=== PATIENT | female | born 1955 | race Caucasian/White ===

== ENCOUNTER 2018-06-29 00:31 | Emergency (ER) | payer BC, MEDICARE, OTHER ==
[2018-06-29] MEDS ORDERED: IPRATROPIUM/ALBUTEROL 3 ML NEB INH STA (01:45)
[2018-06-29] MEDS ORDERED: LIDOCAINE VISCOUS 2% 15 ML UDC MM STA (01:45)
[2018-06-29] MEDS ORDERED: IOVERSOL 320 100 ML VIAL IVP ONE ×2 (01:57→03:10)
[2018-06-29 02:29] LABS: BASOPHILS # (AUTO) 0.1 10^3/uL (0.0-0.1); BASOPHILS % (AUTO) 1.1 %; EOSINOPHILS % (AUTO) 0.7 %; HGB - HEMOGLOBIN 13.2 g/dL (12.0-16.0); LYMPHOCYTES # (AUTO) 1.9 10^3/uL (1.5-3.5); LYMPHOCYTES % (AUTO) 28.4 %; MEAN CORPUSCULAR HEMOGLOBIN 32.6 pg (27.0-31.0); MEAN CORPUSCULAR HGB CONC 34.6 g/dL (32.0-36.0); MEAN CORPUSCULAR VOLUME 94.1 fL (81.0-99.0); MONOCYTES # (AUTO) 0.5 10^3/uL (0.0-1.0); MONOCYTES % (AUTO) 7.1 %; NEUTROPHILS # (AUTO) 4.1 10^3/uL (1.5-6.6); NEUTROPHILS % (AUTO) 62.7 %; PLT - PLATELET COUNT 451 10^3/uL (130-450); RED BLOOD COUNT 4.04 10^6/uL (4.20-5.40); RED CELL DISTRIBUTION WIDTH 22.5 % (12.0-15.0); WHITE BLOOD COUNT 6.6 x10^3/uL (4.8-10.8)
[2018-06-29 02:33] LABS: ALBUMIN 3.9 g/dL (3.2-5.5); ALKALINE PHOSPHATASE 129 IU/L (42-121); ALT ALANINE AMINOTRANSFERASE 24 IU/L (10-60); AST ASPARTATE AMINOTRANSFERASE 44 IU/L (10-42); BILIRUBIN,TOTAL 0.8 mg/dL (0.2-1.0); BUN - BLOOD UREA NITROGEN < 5 mg/dL (6-20); CALCIUM 8.3 mg/dL (8.5-10.3); CARBON DIOXIDE - CO2 21 mmol/L (21-32); CHLORIDE 101 mmol/L (101-111); CREATININE 0.5 mg/dL (0.4-1.0); GFR - MDRD 125 (>89); GLUCOSE 86 mg/dL (70-100); LIPASE 23 U/L (22-51); SODIUM 140 mmol/L (135-145); TOTAL PROTEIN 7.9 g/dL (6.7-8.2)
[2018-06-29] MEDS ORDERED: SODIUM CHLORIDE 0.9% 3,000 ML IV ONE (02:36)
--- NOTE | 2018-06-29 03:20 | XRAY Report ---
Reason: Cough Procedure Date: 06/29/2018 Accession Number: [id number] / [id number] Procedure: XR - Chest 2 View X-Ray CPT Code: 66779 FULL RESULT: EXAM: CHEST RADIOGRAPHY EXAM DATE: 06/29/2018 03:12 AM. CLINICAL HISTORY: Cough. COMPARISON: MRCP W/O 11/23/2014 2:55 PM. TECHNIQUE: 2 views. FINDINGS: Lungs/Pleura: No focal opacities evident. No pleural effusion. No pneumothorax. Normal volumes. Mediastinum: Heart and mediastinal contours are unremarkable. Other: None. IMPRESSION: Negative 2-view chest radiography. RADIA
--- NOTE | 2018-06-29 03:44 | CT Report ---
Reason: Sore throat w voice change Procedure Date: 06/29/2018 Accession Number: [id number] / [id number] Procedure: CT - SOFT TISSUE NECK W CPT Code: FULL RESULT: EXAM: CT SOFT TISSUE NECK WITH CONTRAST. EXAM DATE: 06/29/2018 03:14 AM. HISTORY: COMPARISONS: None. TECHNIQUE: Routine soft tissue neck CT protocol. Reconstructions: Coronal and sagittal. IV contrast: 80ML OPTIRAY 320. In accordance with CT protocol optimization, one or more of the following dose reduction techniques were utilized for this exam: automated exposure control, adjustment of mA and/or KV based on patient size, or use of iterative reconstructive technique. FINDINGS: Visualized Intracranial Contents: Unremarkable. Orbits: Symmetric and unremarkable. Sinuses: There is a left maxillary sinus fluid level. Oral cavity: The visualized oral cavity is unremarkable. The floor of the mouth is symmetric. Pharynx : Pharyngeal mucosa is unremarkable. Larynx: Larynx and supraglottic airway are patent without mass lesion. Vocal cords are symmetric. The visualized trachea is unremarkable. Parotid and Submandibular Glands: Heterogeneous appearance of submandibular gland. Submandibular and parotid glands are enlarged. No adjacent edema.. Lacrimal gland somewhat prominent as well. Lymph Nodes: No enlarged lymph nodes are identified in the cervical, supraclavicular, and visualized superior mediastinal regions. Soft tissues: Soft tissues are unremarkable. No mass lesion or abnormal enhancement. Vascular Structures: Unremarkable. Thyroid Gland: Normal. Lung: No opacities posteriorly in bilateral lung apices, right greater than left. Bones: No evidence of acute fracture or malalignment. There are mild degenerative changes. Other: None. IMPRESSION: 1. Acute appearing left maxillary sinus disease. 2. Nonspecific enlargement of salivary glands may represent autoimmune or infectious process. 3. Opacities in bilateral lung apices may represent atypical pneumonia. RADIA
--- NOTE | 2018-06-29 04:31 | ED Physician Documentation ---
PD HPI URI - Stated complaint Stated Complaint: SOA/COUGH - Chief complaint Chief Complaint: Resp - History obtained from History obtained from: Patient - History of Present Illness Timing - onset: How many months ago (2) Timing duration: Months (2) Timing details: Gradual onset Pain level max: 3 Pain level now: 3 Associated symptoms: Fever, Nasal congestion, Productive cough Contributing factors: No: Sick contact, Travel Improves by: No: Rest, Medication Worsened by: Activity Review of Systems Constitutional: reports: Reviewed and negative Eyes: reports: Reviewed and negative Ears: reports: Reviewed and negative Nose: reports: Reviewed and negative Throat: reports: Sore throat, Other (Voice change) Cardiac: reports: Reviewed and negative Respiratory: reports: Cough GI: reports: Reviewed and negative : reports: Reviewed and negative Skin: reports: Reviewed and negative Musculoskeletal: reports: Reviewed and negative Neurologic: reports: Reviewed and negative Psychiatric: reports: Reviewed and negative Endocrine: reports: Reviewed and negative Immunocompromised: reports: Reviewed and negative PD PAST MEDICAL HISTORY - Past Medical History Past Medical History: Yes Cardiovascular: None Respiratory: None Endocrine/Autoimmune: None GI: None 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 : None HEENT: None Psych: Anxiety Musculoskeletal: None Derm: None - Past Surgical History Past Surgical History: Yes General: Cholecystectomy, Appendectomy /DESIGN TRANSFERRER: Hysterectomy - Present Medications Home Medications: Ambulatory Orders Medication Instructions Recorded Confirmed Gabapentin 300 mg PO QPM 11/07/14 11/07/14 HYDROcod/ACETAM 5/325 [Vicodin 1 - 2 tab PO Q4HR PRN 11/07/14 11/07/14 5/325] Hydrocodone/Acetaminophen [[place] 1 each PO Q6H PRN #12 tablet 11/07/14 5-325 Tablet] Ondansetron Odt [Zofran Odt] 4 mg PO Q4HR PRN 11/07/14 11/07/14 Promethazine Supp [Phenergan Supp] 25 mg [place] Q6H PRN #10 supp 11/07/14 oxyCODONE [Roxicodone] 5 mg PO Q4-6H PRN #14 tablet 11/22/14 Amox/Clav 875/125 [Augmentin] 1 each PO Q12H #20 tablet 06/29/18 Azithromycin [Zithromax] 0 mg PO DAILY #6 tablet 06/29/18 - Allergies Allergies/Adverse Reactions: Allergies Allergy/AdvReac Type Severity Reaction Status Date / Time No Known Drug Allergies Allergy Verified 09/08/14 11:59 - Living Situation Living Situation: reports: With spouse/s.o. Living Arrangement: reports: At home - Social History Does the pt smoke?: No Smoking Status: Never smoker Does the pt drink ETOH?: Yes Does the pt have substance abuse?: No - Family History Family history: reports: Other (Reviewed and not pertinent) - Immunizations Immunizations are current?: Yes - POLST Patient has POLST: No PD ED PE NORMAL - Vitals Vital signs reviewed: Yes - General General: Alert and oriented X 3, No acute distress - HEENT HEENT: PERRL - Neck Neck: Supple, no meningeal sign - Cardiac Cardiac: RRR, No murmur - Respiratory Respiratory: Clear bilaterally - Abdomen Abdomen: Normal bowel sounds, Soft, Non tender, Non distended - Derm Derm: Warm and dry - Extremities Extremities: No deformity - Neuro Neuro: Alert and oriented X 3 - Psych Psych: Normal mood, Normal affect Results - Vitals Vitals: Vital Signs - 24 hr 06/29/18 06/29/18 02:21 04:49 Temperature 36.9 C Heart Rate 92 103 H Respiratory 18 20 Rate Blood Pressure 135/84 H O2 Saturation 96 Oxygen O2 Source Room air - Labs Labs: Laboratory Tests 06/29/18 06/29/18 06/29/18 01:55 02:10 02:10 WBC 6.6 RBC 4.04 L Hgb 13.2 Hct 38.0 MCV 94.1 MCH 32.6 H MCHC 34.6 RDW 22.5 H Plt Count 451 H MPV 6.0 L Neut # (Auto) 4.1 Lymph # (Auto) 1.9 Esmeralda # (Auto) 0.5 Eos # (Auto) 0.0 Baso # (Auto) 0.1 Absolute Nucleated RBC 0.00 Nucleated RBC % 0.0 Manual Slide Review Indicated Platelet Estimate NORMAL (130-450,000) RBC Morph Micro Appear 2+ ANISOCYTOSIS Sodium 140 Potassium 3.4 L Chloride 101 Carbon Dioxide 21 Anion Gap 18.0 H BUN < 5 L Creatinine 0.5 Estimated GFR (MDRD) 125 Glucose 86 Lactic Acid Calcium 8.3 L Total Bilirubin 0.8 AST 44 H ALT 24 Alkaline Phosphatase 129 H Total Protein 7.9 Albumin 3.9 Globulin 4.0 Albumin/Globulin Ratio 1.0 Lipase 23 Group A Strep Rapid Negative 06/29/18 02:10 WBC RBC Hgb Hct MCV MCH MCHC RDW Plt Count MPV Neut # (Auto) Lymph # (Auto) Esmeralda # (Auto) Eos # (Auto) Baso # (Auto) Absolute Nucleated RBC Nucleated RBC % Manual Slide Review Platelet Estimate RBC Morph Micro Appear Sodium Potassium Chloride Carbon Dioxide Anion Gap BUN Creatinine Estimated GFR (MDRD) Glucose Lactic Acid 3.2 H* Calcium Total Bilirubin AST ALT Alkaline Phosphatase Total Protein Albumin Globulin Albumin/Globulin Ratio Lipase Group A Strep Rapid - Rads (name of study) Chest xray Radiology: Final report received (Bilateral lower lobe atypical PNA) CT Soft Tissue Neck Radiology: Final report received (Maxillary sinusitis) PD MEDICAL DECISION MAKING - ED course Complexity details: reviewed results, re-evaluated patient, considered differential, d/w patient, d/w family ED course: 62-year-old female with difficulty swallowing and voice change.CT soft tissue neck showed sinusitis and chest x-ray showed possible bilateral lower lobe pneumonia. Given long time course of symptoms patient is treated for bacterial sinusitis with Augmentin and atypical pneumonia with azithromycin. Discharged with primary care follow-up. Departure - Departure Disposition: 01 Home, Self Care Clinical Impression: Acute bacterial sinusitis Pneumonia Qualifiers: Pneumonia type: due to unspecified organism Laterality: bilateral Instructions: Pneumonia Dc, Rhinosinusitis Acute Bacterial Follow-Up: Your, PCP [Other] Prescriptions: Amox/Clav 875/125 [Augmentin] 1 each PO Q12H #20 tablet Azithromycin [Zithromax] 0 mg PO DAILY #6 tablet
[2018-06-29 04:50] VITALS: BP 135/84
[2018-06-29 05:24] LABS: PLATELET ESTIMATE, MANUAL NORMAL (130-450,000) (NORMAL)
[2018-06-29 05:25] LABS: RBC MORPHOLOGY (MULTIPLE) 2+ ANISOCYTOSIS (NORMAL)
== END 2018-06-29 04:51 | disposition home or self-care (01) ==
LOC: ED 00:31
DX: J01.00 Acute maxillary sinusitis, unspecified (principal); B96.89 Other specified bacterial agents as the cause of diseases classified elsewhere; J18.9 Pneumonia, unspecified organism; R13.10 Dysphagia, unspecified; R49.9 Unspecified voice and resonance disorder
CPT/HCPCS: 36415; 70491; 71046; 80053; 83605; 83690; 85025; 87040; 87070; 87430; 94640; 99283; Q9967

== ENCOUNTER 2018-07-29 12:47 | Emergency (ER) | payer MEDICARE ==
--- NOTE | 2018-07-29 14:02 | ED Physician Documentation ---
PD HPI LOWER EXT INJURY - Stated complaint Stated Complaint: LEFT FOOT PAIN - Chief complaint Chief Complaint: Trauma Ext - History obtained from History obtained from: Patient - History of Present Illness PD HPI LOW EXT INJURY LOCATION: Left, Ankle, Foot Type of injury: Twist Where injury occurred: Home Timing - onset: Last night (She states she got up during the night and had a twisting mechanism of her left ankle and foot with pain on it subsequently. There is some swelling this morning. It hurts for her to walk. She thought she may have been a little off balance from taking Cymbalta at night that led to the fall. She denies any fainting.) Timing - details: Abrupt onset, Still present Worsened by: Moving, Palpating, Other (walking) Associated symptoms: Swelling. 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 : None HEENT: None Psych: Anxiety Musculoskeletal: None Derm: None - Past Surgical History Past Surgical History: Yes General: Cholecystectomy, Appendectomy /NAVAL ENGINEER: Hysterectomy - Present Medications Home Medications: Ambulatory Orders Medication Instructions Recorded Confirmed Gabapentin 300 mg PO QPM 11/07/14 11/07/14 HYDROcod/ACETAM 5/325 [Vicodin 1 - 2 tab PO Q4HR PRN 11/07/14 11/07/14 5/325] Hydrocodone/Acetaminophen [[place] 1 each PO Q6H PRN #12 tablet 11/07/14 5-325 Tablet] Ondansetron Odt [Zofran Odt] 4 mg PO Q4HR PRN 11/07/14 11/07/14 Promethazine Supp [Phenergan Supp] 25 mg [place] Q6H PRN #10 supp 11/07/14 oxyCODONE [Roxicodone] 5 mg PO Q4-6H PRN #14 tablet 11/22/14 Amox/Clav 875/125 [Augmentin] 1 each PO Q12H #20 tablet 06/29/18 Azithromycin [Zithromax] 0 mg PO DAILY #6 tablet 06/29/18 Hydrocodone/Acetaminophen [[place] 1 each PO Q6H PRN #15 tablet 07/29/18 5-325 Tablet] - Allergies Allergies/Adverse Reactions: Allergies Allergy/AdvReac Type Severity Reaction Status Date / Time No Known Drug Allergies Allergy Verified 07/29/18 12:56 - Social History Does the pt smoke?: No Smoking Status: Never smoker Does the pt drink ETOH?: Yes Does the pt have substance abuse?: No - Immunizations Immunizations are current?: Yes - POLST Patient has POLST: No PD ED PE NORMAL - Vitals Vital signs reviewed: Yes - General General: Alert and oriented X 3, No acute distress, Well developed/nourished - Derm Derm: Normal color, Warm and dry - Extremities Extremities: Other (Left lateral ankle and dorsal lateral aspect of the foot with localized tenderness and swelling. There is no gross deformity. There is no warmth of the area but some slight redness. There is good color and capillary refill in the toes and movement of the toes. There is no gross laxity with limited inversion stress. Medially is not tender.) - Neuro Neuro: No motor deficit, No sensory deficit Results - Vitals Vitals: Vital Signs - 24 hr 07/29/18 07/29/18 12:53 14:48 Temperature 35.7 C L 36.6 C Heart Rate 92 88 Respiratory 14 14 Rate Blood Pressure 111/74 112/72 O2 Saturation 99 100 Oxygen O2 Source Room air - Rads (name of study) left foot and ankle Radiology: Prelim report reviewed, EMP read contemporaneously (no fractures. ), See rad report Departure - Departure Disposition: 01 Home, Self Care Clinical Impression: Ankle sprain Qualifiers: Encounter type: initial encounter Involved ligament of ankle: anterior talofibular ligament Laterality: left Qualified Code(s): S93.492A - Sprain of other ligament of left ankle, initial encounter Condition: Stable Record reviewed to determine appropriate education?: Yes Instructions: ED Sprain Ankle Prescriptions: Hydrocodone/Acetaminophen [[place] 5-325 Tablet] 1 each PO Q6H PRN #15 tablet PRN Reason: Pain Comments: Use ankle brace when up and around for the next week or 2 until improved on the ankle sprain. There are no signs of fractures on your x-rays. Elevate and rest the ankle often to reduce swelling. You can use some ice periodically. Tylenol or ibuprofen if needed for pains. Add hydrocodone if needed. Recheck if not better over the next week or so. Discharge Date/Time: 07/29/18 14:48
[2018-07-29] MEDS ORDERED: NAPROXEN 250 MG TABLET PO STA (14:31)
[2018-07-29] MEDS ORDERED: HYDROcod/ACETAM 5/325 MG TABLET PO STA (14:31)
--- NOTE | 2018-07-29 14:45 | XRAY Report ---
Reason: fall. Pain/swelling Procedure Date: 07/29/2018 Accession Number: [id number] / [id number] Procedure: XR - Ankle 3 View LT CPT Code: FULL RESULT: EXAM: LEFT ANKLE RADIOGRAPHY EXAM DATE: 07/29/2018 01:05 PM. CLINICAL HISTORY: Fall. Pain/swelling. COMPARISON: FOOT 3 VIEW LT 07/29/2018 1:05 PM. TECHNIQUE: 3 views. FINDINGS: Bones: Nondisplaced fracture of the lateral malleolus. Joints: Small joint effusion at the ankle. Soft Tissues: Soft tissue swelling along the lateral aspect of the ankle. IMPRESSION: 1. Nondisplaced fracture of the lateral malleolus. 2. Soft tissue swelling along the lateral aspect of the ankle. [facility]
[2018-07-29 14:49] VITALS: BP 112/72
--- NOTE | 2018-07-29 14:53 | XRAY Report ---
Reason: fall/ pain/swelling Procedure Date: 07/29/2018 Accession Number: [id number] / [id number] Procedure: XR - Foot 3 View LT CPT Code: FULL RESULT: EXAM: LEFT FOOT RADIOGRAPHY EXAM DATE: 07/29/2018 01:05 PM. CLINICAL HISTORY: Fall/ pain/swelling. COMPARISON: ANKLE 3 VIEW LT 07/29/2018 1:05 PM. TECHNIQUE: 3 views. FINDINGS: Bones: Nondisplaced fracture of the lateral malleolus. Joints: Normal. No subluxations. Soft Tissues: Normal. No soft tissue swelling. IMPRESSION: Nondisplaced fracture of the lateral malleolus. RADIA
== END 2018-07-29 14:48 | disposition home or self-care (01) ==
LOC: ED 12:47
DX: S93.492A Sprain of other ligament of left ankle, initial encounter (principal); X50.1XXA Overexertion from prolonged static or awkward postures, initial encounter
CPT/HCPCS: 73610; 73630; 99283; A9270

== ENCOUNTER 2018-10-06 17:42 | Outpatient (CLI) | payer MEDICARE | END 2018-10-06 17:43 | disposition critical access hospital (66) | LOC: EMS 17:42 | PROVIDERS: ATTEND Surgery | DX: R40.20 Unspecified coma (principal) | CPT/HCPCS: A0425; A0427 ==

== ENCOUNTER 2018-10-06 17:54 | Emergency (ER) | payer MEDICARE ==
[2018-10-06] MEDS ORDERED: ROCURONIUM 50 MG/5 ML VIAL IVP ONE (18:06)
[2018-10-06] MEDS ORDERED: LIDOCAINE 2% ABBOJECT 100 MG/5 ML SYRINGE IVP STA (18:07)
[2018-10-06] MEDS ORDERED: fentaNYL 100 MCG/2 ML VIAL IVP STA (18:07)
[2018-10-06] MEDS ORDERED: ETOMIDATE 40 MG/20 ML VIAL IVP STA (18:07)
[2018-10-06] MEDS ORDERED: LORazepam 2 MG/ML VIAL IVP STA (18:07)
[2018-10-06] MEDS ORDERED: VECURONIUM 10 MG VIAL IVP STA (18:09)
[2018-10-06] MEDS ORDERED: levETIRAcetam INJ 1,000 MG in SODIUM CHLORIDE 0.9% 100ML 100 ML IV STA (18:09)
[2018-10-06] MEDS ORDERED: SODIUM CHLORIDE 0.9% 1,000 ML IV ONE ×2 (18:09→19:17)
[2018-10-06] MEDS ORDERED: PROPOFOL 1000 MG/100 ML 100 ML IV STA (18:09)
--- NOTE | 2018-10-06 18:09 | ED Physician Documentation ---
PD HPI HEAD INJURY - Stated complaint Stated Complaint: ALOC - History obtained from History obtained from: Family, EMS - History of Present Illness Mechanism of head injury: Fell (63-year-old woman, her states that she quit alcohol about 5 days ago and is been quite shaky. Last night she had a ground-level fall and hit her occiput. There is no loss of consciousness. Today she was progressively shaky and "off." On arrival to the emergency department she cannot give any history, she is obtunded. 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 : None HEENT: None Psych: Anxiety Musculoskeletal: None Derm: None - Past Surgical History Past Surgical History: Yes General: Cholecystectomy, Appendectomy /CAR MANAGER: Hysterectomy - Present Medications Home Medications: Ambulatory Orders Medication Instructions Recorded Confirmed HYDROcod/ACETAM 5/325 [Vicodin 1 - 2 tab PO Q4HR PRN 11/07/14 11/07/14 5/325] Hydrocodone/Acetaminophen [[place] 1 each PO Q6H PRN #12 tablet 11/07/14 5-325 Tablet] Ondansetron Odt [Zofran Odt] 4 mg PO Q4HR PRN 11/07/14 11/07/14 Promethazine Supp [Phenergan Supp] 25 mg [place] Q6H PRN #10 supp 11/07/14 RX: Gabapentin 300 mg PO QPM 11/07/14 11/07/14 RX: oxyCODONE [Roxicodone] 5 mg PO Q4-6H PRN #14 tablet 11/22/14 Amox/Clav 875/125 [Augmentin] 1 each PO Q12H #20 tablet 06/29/18 RX: Azithromycin [Zithromax] 0 mg PO DAILY #6 tablet 06/29/18 Hydrocodone/Acetaminophen [[place] 1 each PO Q6H PRN #15 tablet 07/29/18 5-325 Tablet] - Allergies Allergies/Adverse Reactions: Allergies Allergy/AdvReac Type Severity Reaction Status Date / Time No Known Drug Allergies Allergy Verified 07/29/18 12:56 - Social History Does the pt smoke?: No Smoking Status: Never smoker Does the pt drink ETOH?: Yes Does the pt have substance abuse?: No - Immunizations Immunizations are current?: Yes - POLST Patient has POLST: No PD ED PE NORMAL - Vitals Vital signs reviewed: Yes - General General: Other (She is laying on the gurney with eyes open, right gaze deviation and fixed and dilated pupils. She has no spontaneous movement to voice or pain, she has some posturing on the right side.) - Neck Neck: No bony TTP - Cardiac Cardiac: RRR, No murmur - Respiratory Respiratory: No respiratory distress, Clear bilaterally - Abdomen Abdomen: Non tender - Derm Derm: Normal color, Warm and dry - Extremities Extremities: No edema, No calf tenderness / cord - Neuro Eye Opening: None Motor: Abnormal Flexion Verbal: None GCS Score: 5 Results - Vitals Vitals: Vital Signs - 24 hr 10/06/18 10/06/18 10/06/18 17:56 17:59 18:10 Temperature 35.7 C L 35.2 C L Heart Rate 125 H 103 H 126 H Respiratory 31 H 17 23 Rate Blood Pressure 88/51 L 94/65 139/68 H O2 Saturation 100 100 100 10/06/18 10/06/18 10/06/18 19:18 19:26 19:32 Temperature 36.4 C L 36.5 C Heart Rate 117 H 107 H 105 H Respiratory 28 H 21 Rate Blood Pressure 91/56 L 87/55 L 96/58 L O2 Saturation 96 95 94 Oxygen O2 Source Mechanical ventilator - EKG (time done) 1916 Rate: Rate (enter#) (118) Rhythm: Sinus tachycardia L[place]: Normal Intervals: Normal MD Ischemia: Non specific changes (Some modestly Ischemic changes with kind of diffuse ST depression most marked anterior and lateral) Computer interpretation: Agree with computer - Labs Labs: Laboratory Tests 10/06/18 10/06/18 10/06/18 18:08 18:08 18:08 WBC 16.4 H RBC 3.52 L Hgb 13.6 Hct 40.8 MCV 115.7 H MCH 38.6 H MCHC 33.4 RDW 18.4 H Plt Count 113 L MPV 8.0 Neut # (Auto) 8.8 H Lymph # (Auto) 6.4 H Jones # (Auto) 1.0 Eos # (Auto) 0.1 Baso # (Auto) 0.1 Absolute Nucleated RBC 0.02 Band Neuts % (Manual) Not Reportable Abnorm Lymph % (Manual) Not Reportable Nucleated RBC % 0.1 Neutrophils # (Manual) Not Reportable Lymphocytes # (Manual) Not Reportable Monocytes # (Manual) Not Reportable Eosinophils # (Manual) Not Reportable Basophils # (Manual) Not Reportable Differential Comment MANUAL=AUTO DIFF Manual Slide Review Indicated Platelet Estimate NORMAL (130-450,000) Platelet Morphology NORMAL APPEARANCE RBC Morph Micro Appear NORMAL APPEARANCE PT 13.3 H INR 1.2 APTT 33.0 Bld Gas Analysis Time Sample Site ABG pH ABG pCO2 ABG pO2 ABG HCO3 ABG Total CO2 ABG O2 Saturation ABG Base Excess Robbie Test Respiration Rate O2 Delivery Device Vent Mode FiO2 Tidal Volume PEEP Pressure Support Vent Sodium 125 L Potassium 3.3 L Chloride 84 L Carbon Dioxide 17 L Anion Gap 24.0 H BUN 11 Creatinine 1.0 Estimated GFR (MDRD) 56 L Glucose 122 H Lactic Acid Calcium 9.0 Total Bilirubin 1.8 H AST 155 H ALT 36 Alkaline Phosphatase 175 H Total Creatine Kinase 272 H CK-MB (CK-2) Troponin I Total Protein 8.2 Albumin 4.2 Globulin 4.0 Albumin/Globulin Ratio 1.1 Lipase 45 Ethyl Alcohol < 5.0 10/06/18 10/06/18 10/06/18 18:08 18:08 18:42 WBC RBC Hgb Hct MCV MCH MCHC RDW Plt Count MPV Neut # (Auto) Lymph # (Auto) Jones # (Auto) Eos # (Auto) Baso # (Auto) Absolute Nucleated RBC Band Neuts % (Manual) Abnorm Lymph % (Manual) Nucleated RBC % Neutrophils # (Manual) Lymphocytes # (Manual) Monocytes # (Manual) Eosinophils # (Manual) Basophils # (Manual) Differential Comment Manual Slide Review Platelet Estimate Platelet Morphology RBC Morph Micro Appear PT INR APTT Bld Gas Analysis Time 1851 Sample Site LEFT RADIAL ABG pH 7.07 L* ABG pCO2 43 ABG pO2 86 ABG HCO3 12.3 L ABG Total CO2 13.7 L ABG O2 Saturation 92 L ABG Base Excess -17.3 L Robbie Test POSITIVE Respiration Rate 20 O2 Delivery Device VENTILATOR Vent Mode SIMV FiO2 70.00 Tidal Volume 450 PEEP 5 Pressure Support Vent 10 Sodium Potassium Chloride Carbon Dioxide Anion Gap BUN Creatinine Estimated GFR (MDRD) Glucose Lactic Acid Calcium Total Bilirubin AST ALT Alkaline Phosphatase Total Creatine Kinase CK-MB (CK-2) 22.7 H Troponin I 0.06 Total Protein Albumin Globulin Albumin/Globulin Ratio Lipase Ethyl Alcohol 10/06/18 18:51 WBC RBC Hgb Hct MCV MCH MCHC RDW Plt Count MPV Neut # (Auto) Lymph # (Auto) Jones # (Auto) Eos # (Auto) Baso # (Auto) Absolute Nucleated RBC Band Neuts % (Manual) Abnorm Lymph % (Manual) Nucleated RBC % Neutrophils # (Manual) Lymphocytes # (Manual) Monocytes # (Manual) Eosinophils # (Manual) Basophils # (Manual) Differential Comment Manual Slide Review Platelet Estimate Platelet Morphology RBC Morph Micro Appear PT INR APTT Bld Gas Analysis Time Sample Site ABG pH ABG pCO2 ABG pO2 ABG HCO3 ABG Total CO2 ABG O2 Saturation ABG Base Excess Robbie Test Respiration Rate O2 Delivery Device Vent Mode FiO2 Tidal Volume PEEP Pressure Support Vent Sodium Potassium Chloride Carbon Dioxide Anion Gap BUN Creatinine Estimated GFR (MDRD) Glucose Lactic Acid 6.5 H* Calcium Total Bilirubin AST ALT Alkaline Phosphatase Total Creatine Kinase CK-MB (CK-2) Troponin I Total Protein Albumin Globulin Albumin/Globulin Ratio Lipase Ethyl Alcohol - Rads (name of study) CT HEad/Cspine/Chest/Abd/Pelvis Radiology: EMP read contemporaneously (Head CT normal) Procedures - Intubation Provider: Emergency physician Medications: Etomidate (20mg), Ativan (2mg), Lidocaine (100mg), Fentanyl (100mcg) Blade: Clemente (4) Tube: Cuffed Route: Oral Confirmation: Direct visualization, Pulse ox Complications: No compications PD MEDICAL DECISION MAKING - ED course ED course: 63-year-old woman presents obtunded after head injury last night, almost i mmediately after arrival she started having seizure activity. This was treated with Ativan 2 mg IV and we did need to bag her for some oxygen saturations in the 70s. Then she was intubated, pretreated with lidocaine, 100 mg, fentanyl, 100 mcg. Sent immediately to CT for joshi scan but obviously this whole circumstance is worrisome for severe head injury. lift was mobilized during the intubation and [facility] was called. She was also given 1000 mg of Keppra IV. I spoke with Dr. Zhu at [facility] about 1830. They are boarding quite a few patients and at that point I looked at her head CT which was without blood. He requested that we hold transfer, if there were no signs of trauma on joshi scan recommended transferring to another facility given their volumes. Her initial ABG showed a significant metabolic acidosis. To help her blow this off we increased her tidal volume from 450 to 600 and gave her IV fluids, 2L crystalloid. There was no evidence of trauma on the CTs, some incidental findings, subsequent to that she was accepted by Dr. Morales to [facility] at 1930 and cobras were completed. - Critical Care Time(min): 50 Time Includes: Direct patient care, Review records, Reassess patient, Document care, Coordinate care, Medical consult, Family consult for tx [facility] Data interpretation: Labs, Pulse ox, ABG Procedures included in critical care time: Peripheral IV Procedures excluded from critical care time: Intubation Departure - Departure Disposition: 02 Transfer Acute Care Hosp Clinical Impression: Respiratory failure, Fall from ground level, Head injury, Coma, Lactic acidosis, Seizure, Cirrhosis, ST segment depression Condition: Critical Discharge Date/Time: 10/06/18 19:53
[2018-10-06] MEDS ORDERED: WATER FOR INJECTION,STERILE 10 ML ONE (18:19)
[2018-10-06 18:22] LABS: BASOPHILS # (AUTO) 0.1 10^3/uL (0.0-0.1); BASOPHILS % (AUTO) 0.5 %; EOSINOPHILS # (AUTO) 0.1 10^3/uL (0.0-0.7); EOSINOPHILS % (AUTO) 0.9 %; HGB - HEMOGLOBIN 13.6 g/dL (12.0-16.0); LYMPHOCYTES # (AUTO) 6.4 10^3/uL (1.5-3.5); MEAN CORPUSCULAR HEMOGLOBIN 38.6 pg (27.0-31.0); MEAN CORPUSCULAR HGB CONC 33.4 g/dL (32.0-36.0); MEAN CORPUSCULAR VOLUME 115.7 fL (81.0-99.0); MONOCYTES % (AUTO) 6.4 %; NEUTROPHILS # (AUTO) 8.8 10^3/uL (1.5-6.6); NEUTROPHILS % (AUTO) 53.2 %; PLT - PLATELET COUNT 113 10^3/uL (130-450); RED BLOOD COUNT 3.52 10^6/uL (4.20-5.40); RED CELL DISTRIBUTION WIDTH 18.4 % (12.0-15.0); WHITE BLOOD COUNT 16.4 x10^3/uL (4.8-10.8)
[2018-10-06] MEDS ORDERED: IOVERSOL 320 100 ML VIAL IVP ONE ×2 (18:22→18:52)
[2018-10-06 18:25] LABS: INR 1.2 (0.8-1.2); PT - PROTHROMBIN TIME 13.3 secs (9.9-12.6)
[2018-10-06 18:30] LABS: ALBUMIN 4.2 g/dL (3.2-5.5); ALBUMIN/GLOBULIN RATIO 1.1 (1.0-2.2); ALKALINE PHOSPHATASE 175 IU/L (42-121); ALT ALANINE AMINOTRANSFERASE 36 IU/L (10-60); AST ASPARTATE AMINOTRANSFERASE 155 IU/L (10-42); BILIRUBIN,TOTAL 1.8 mg/dL (0.2-1.0); BUN - BLOOD UREA NITROGEN 11 mg/dL (6-20); CARBON DIOXIDE - CO2 17 mmol/L (21-32); CHLORIDE 84 mmol/L (101-111); CK- CREATINE KINASE 272 IU/L (22-269); GFR - MDRD 56 (>89); GLUCOSE 122 mg/dL (70-100); LIPASE 45 U/L (22-51); SODIUM 125 mmol/L (135-145); TOTAL PROTEIN 8.2 g/dL (6.7-8.2)
[2018-10-06 18:53] LABS: PLATELET MORPHOLOGY NORMAL APPEARANCE (NORMAL); RBC MORPHOLOGY (MULTIPLE) NORMAL APPEARANCE (NORMAL)
[2018-10-06 18:54] LABS: DIFFERENTIAL COMMENT MANUAL=AUTO DIFF; PLATELET ESTIMATE, MANUAL NORMAL (130-450,000) (NORMAL)
[2018-10-06 19:05] LABS: ABG BASE EXCESS -17.3 mmol/L (-2.0-3.0); ABG HCO3 12.3 mmol/L (22.0-26.0); ABG OXYGEN SATURATION 92 % (94-98); ABG PCO2 43 mmHg (34-45); ABG PO2 86 mmHg (80-100); ABG TCO2 13.7 MMOL/L (21.0-29.0); ALLEN TEST POSITIVE
--- NOTE | 2018-10-06 19:05 | CT Report ---
Reason: head inj/coma Procedure Date: 10/06/2018 Accession Number: [id number] / [id number] Procedure: CT - CHEST W CPT Code: FULL RESULT: EXAM: CT CHEST WITH CONTRAST. EXAM DATE: 10/06/2018 06:45 PM. CLINICAL HISTORY: Trauma, unresponsive patient. COMPARISONS: None. TECHNIQUE: Routine helical CT imaging was performed through the chest. IV contrast: None. Reconstructions: Coronal and sagittal. In accordance with CT protocol optimization, one or more of the following dose reduction techniques were utilized for this exam: automated exposure control, adjustment of mA and/or KV based on patient size, or use of iterative reconstructive technique. FINDINGS: Lungs/Pleura: No nodules, bronchial thickening, consolidation, or edema. Pulmonary vasculature is normal. No pericardial or pleural effusion. No pneumothorax. Mediastinum: Normal heart size. No pericardial effusion. There is no lymphadenopathy. There is eccentric mural thickening of the mid to lower esophagus. No paraesophageal lymph nodes seen. Fluid in the esophagus may be secondary to gastroesophageal reflux. Bones: Unremarkable. Visualized Abdomen: The liver demonstrates decreased attenuation. The visualized upper abdomen is otherwise unremarkable. Other: Tip of endotracheal tube placed to level of aortic arch. IMPRESSION: 1. No evidence of acute thoracic trauma. 2. Eccentric mural thickening of the mid to lower esophagus. Consider direct visualization to exclude neoplastic process. 3. Fatty liver. RAD[facility]
--- NOTE | 2018-10-06 19:07 | CT Report ---
Reason: head inj/coma Procedure Date: 10/06/2018 Accession Number: [id number] / [id number] Procedure: CT - CERVICAL SPINE WO CPT Code: FULL RESULT: EXAM: CT CERVICAL SPINE WITHOUT CONTRAST DATE: 10/06/2018 06:45 PM. HISTORY: Head inj/coma. COMPARISONS: 07/15/[address], CT neck 06/29/2018 TECHNIQUE: Thin-section axial images were acquired of the cervical spine without contrast. Post-processing: Coronal and sagittal reformats. Other: None. In accordance with CT protocol optimization, one or more of the following dose reduction techniques were utilized for this exam: automated exposure control, adjustment of mA and/or KV based on patient size, or use of iterative reconstructive technique. FINDINGS: Alignment: No scoliosis or spondylolisthesis. Bones: No fracture or bone lesion. Degenerative endplate spurring. Interspace Levels/Facets: C1-C2 through C7-T1: Multilevel degenerative disk space narrowing and mild degenerative facet joint arthropathy similar to previous. Other: No prevertebral soft tissue swelling. Patient is intubated. IMPRESSION: Degenerative change cervical spine stable compared with 06/29/2018. No superimposed acute fracture or malalignment. RAD[facility]
[2018-10-06 19:08] LABS: ABG PH 7.07 (7.35-7.45)
--- NOTE | 2018-10-06 19:09 | CT Report ---
Reason: head inj/coma Procedure Date: 10/06/2018 Accession Number: [id number] / [id number] Procedure: CT - HEAD WO CPT Code: FULL RESULT: EXAM: CT HEAD EXAM DATE: 10/06/2018 06:45 PM. CLINICAL HISTORY: Head inj/coma. COMPARISON: 07/18/2012 TECHNIQUE: Multiaxial CT images were obtained from the foramen magnum to the vertex. Reformats: Sagittal and coronal. IV contrast: None. In accordance with CT protocol optimization, one or more of the following dose reduction techniques were utilized for this exam: automated exposure control, adjustment of mA and/or KV based on patient size, or use of iterative reconstructive technique. FINDINGS: Parenchyma: No intraparenchymal hemorrhage. No evidence of mass, midline shift, or CT findings of infarction. Matson-white differentiation is distinct. Extraaxial Spaces: Normal for age. No subdural or epidural collections identified. Ventricles: Normal in size and position. Sinuses and Orbits: Membrane thickening likely secondary to intubation Bones: No evidence of fracture or calvarial defect. Other: No acute findings compared with 07/18/2012 IMPRESSION: Normal head CT. RADIA
--- NOTE | 2018-10-06 19:18 | CT Report ---
Reason: head inj/coma Procedure Date: 10/06/2018 Accession Number: [id number] / [id number] Procedure: CT - Abdomen/Pelvis W CPT Code: FULL RESULT: EXAM: CT ABDOMEN AND PELVIS EXAM DATE: 10/06/2018 06:45 PM. CLINICAL HISTORY: Head injury/coma. COMPARISONS: None. TECHNIQUE: Routine helical CT imaging was performed through the abdomen and pelvis. IV contrast: 100 mL Optiray 320. Enteric contrast: No. Reconstructions: Coronal and sagittal. In accordance with CT protocol optimization, one or more of the following dose reduction techniques were utilized for this exam: automated exposure control, adjustment of mA and/or KV based on patient size, or use of iterative reconstructive technique. FINDINGS: Lung Bases: Unremarkable. Liver: The liver demonstrates decreased attenuation with no focal lesions. Gallbladder/Bile Ducts: The gallbladder has been removed. Spleen: Normal. Pancreas: Normal. Adrenal Glands: Normal. Kidneys: Normal. No masses or hydronephrosis. Peritoneal Cavity/Bowel: Normal. No free fluid, free air or adenopathy. No masses or acute inflammatory process. No evidence of appendicitis. Pelvic Organs: Uterus has been removed. No adnexal mass. The urinary bladder is unremarkable. There is no pelvic lymphadenopathy or fluid collection. Vasculature: Atherosclerotic aorta without evidence of aneurysm. Bones: No fractures or destructive bone lesions. Right hip replacement noted. Other: None. IMPRESSION: 1. No evidence of acute solid or hollow abdominal viscera trauma. 2. Fatty liver. RAD[facility]
[2018-10-06 19:32] VITALS: BP 96/58
== END 2018-10-06 19:53 | disposition short-term general hospital (02) ==
LOC: EDUNIT# → ED 17:54
DX: J96.90 Respiratory failure, unspecified, unspecified whether with hypoxia or hypercapnia (principal); S09.90XA Unspecified injury of head, initial encounter; R40.20 Unspecified coma; E87.2 Acidosis; R56.9 Unspecified convulsions; K74.60 Unspecified cirrhosis of liver; R94.31 Abnormal electrocardiogram [ECG] [EKG]; W18.30XA Fall on same level, unspecified, initial encounter
CPT/HCPCS: 31500; 36415; 36600; 51702; 70450; 71260; 72125; 74177; 80053; 82550; 82553; 82803; 83605; 83690; 84484; 85025; 85610; 85730; 93005; 94770; 96361; 96365; 96375; 99291; J2060; Q9967; 80320; 99285

== ENCOUNTER 2018-10-13 12:01 | Outpatient (CLI) | payer MEDICARE ==
[2018-10-13 19:07] LABS: ALBUMIN 3.6 g/dL (3.2-5.5); CALCIUM 9.3 mg/dL (8.5-10.3); CREATININE 0.6 mg/dL (0.4-1.0); TOTAL PROTEIN 7.2 g/dL (6.7-8.2)
[2018-10-13 19:17] LABS: BASOPHILS # (AUTO) 0.1 10^3/uL (0.0-0.1); EOSINOPHILS % (AUTO) 0.8 %; HGB - HEMOGLOBIN 11.8 g/dL (12.0-16.0); LYMPHOCYTES # (AUTO) 1.1 10^3/uL (1.5-3.5); LYMPHOCYTES % (AUTO) 22.2 %; MEAN CORPUSCULAR HEMOGLOBIN 37.2 pg (27.0-31.0); MEAN CORPUSCULAR HGB CONC 32.8 g/dL (32.0-36.0); MEAN CORPUSCULAR VOLUME 113.6 fL (81.0-99.0); MEAN PLATELET VOLUME 8.5 fL (7.9-10.8); MONOCYTES # (AUTO) 0.6 10^3/uL (0.0-1.0); MONOCYTES % (AUTO) 12.7 %; NEUTROPHILS # (AUTO) 3.2 10^3/uL (1.5-6.6); NEUTROPHILS % (AUTO) 63.3 %; PLT - PLATELET COUNT 320 10^3/uL (130-450); RED BLOOD COUNT 3.17 10^6/uL (4.20-5.40); RED CELL DISTRIBUTION WIDTH 18.2 % (12.0-15.0); WHITE BLOOD COUNT 5.1 x10^3/uL (4.8-10.8)
[2018-10-13 19:57] LABS: PLATELET ESTIMATE, MANUAL NORMAL (130-450,000) (NORMAL); PLATELET MORPHOLOGY NORMAL APPEARANCE (NORMAL); RBC MORPHOLOGY (MULTIPLE) 2+ MACROCYTOSIS (NORMAL)
== END 2018-10-13 12:02 | disposition home or self-care (01) ==
LOC: LAB.WCP 12:01
PROVIDERS: ATTEND Family Medicine
DX: F10.239 Alcohol dependence with withdrawal, unspecified (principal); R56.9 Unspecified convulsions; E87.6 Hypokalemia; E87.1 Hypo-osmolality and hyponatremia
CPT/HCPCS: 36415; 80053; 85025

== ENCOUNTER 2018-10-18 11:07 | Outpatient (CLI) | payer MEDICARE ==
--- NOTE | 2018-10-18 11:42 | XRAY Report ---
Reason: PNEUMONIA Procedure Date: 10/18/2018 Accession Number: [id number] / [id number] Procedure: WCP - Chest 2 View X-Ray CPT Code: 08073 FULL RESULT: EXAM: CHEST RADIOGRAPHY EXAM DATE: 10/18/2018 11:23 AM. CLINICAL HISTORY: Pneumonia. COMPARISON: CHEST 2 VIEW 06/29/2018 1:56 AM. TECHNIQUE: 2 views. FINDINGS: Lungs/Pleura: No focal opacities evident. No pleural effusion. No pneumothorax. Normal volumes. Mediastinum: Stable mild cardiomegaly and calcifications of the aortic arch. Other: None. IMPRESSION: No pneumonia is detected. RAD[facility]
== END 2018-10-18 11:08 | disposition home or self-care (01) ==
LOC: DI.WCP 11:07
PROVIDERS: ATTEND Family Medicine
DX: J18.9 Pneumonia, unspecified organism (principal)
CPT/HCPCS: 71046

== ENCOUNTER 2019-10-21 14:37 | Outpatient (CLI) | payer MEDICARE ==
--- NOTE | 2019-10-21 16:28 | XRAY Report ---
PROCEDURE: Chest 2 View X-Ray INDICATIONS: BREATH SOUNDS TECHNIQUE: 2 view(s) of the chest. COMPARISON: Chest x-ray examination dated 10.18.18 FINDINGS: Surgical changes and devices: None. Lungs and pleura: No pleural effusions or pneumothorax. There is moderate interstitial pulmonary opa city, which is increased compared to 10.18.18 Mediastinum: Mediastinal contours are normal. Heart size is normal. Bones and chest wall: No suspicious bony abnormalities. Soft tissues appear unremarkable. IMPRESSION: Moderate interstitial pulmonary opacity, consistent with atypical pneumonia. Reviewed by: Jareth Jernigan MD on 10/21/2019 4:26 PM PDT Approved by: Jareth Jernigan MD on 10/21/2019 4:26 PM PDT Station ID: [id number]
== END 2019-10-21 14:38 | disposition home or self-care (01) ==
LOC: DI 14:37
PROVIDERS: ATTEND Nurse Practitioner
DX: R91.8 Other nonspecific abnormal finding of lung field (principal)
CPT/HCPCS: 71046

== ENCOUNTER 2019-10-22 22:15 | Outpatient (CLI) | payer MEDICARE ==
[2019-10-22 22:35] LABS: BASOPHILS # (AUTO) 0.1 10^3/uL (0.0-0.1); BASOPHILS % (AUTO) 1.4 %; EOSINOPHILS % (AUTO) 0.9 %; HGB - HEMOGLOBIN 11.2 g/dL (12.0-16.0); LYMPHOCYTES # (AUTO) 1.2 10^3/uL (1.5-3.5); LYMPHOCYTES % (AUTO) 26.7 %; MEAN CORPUSCULAR HEMOGLOBIN 33.8 pg (27.0-31.0); MEAN CORPUSCULAR HGB CONC 34.5 g/dL (32.0-36.0); MEAN CORPUSCULAR VOLUME 98.2 fL (81.0-99.0); MEAN PLATELET VOLUME 9.8 fL (7.9-10.8); MONOCYTES # (AUTO) 0.5 10^3/uL (0.0-1.0); MONOCYTES % (AUTO) 12.6 %; NEUTROPHILS # (AUTO) 2.5 10^3/uL (1.5-6.6); NEUTROPHILS % (AUTO) 57.9 %; PLT - PLATELET COUNT 300 10^3/uL (130-450); RED BLOOD COUNT 3.31 10^6/uL (4.20-5.40); WHITE BLOOD COUNT 4.3 x10^3/uL (4.8-10.8)
== END 2019-10-22 23:59 | disposition home or self-care (01) ==
LOC: LAB.R 22:15
PROVIDERS: ATTEND Nurse Practitioner
DX: R68.89 Other general symptoms and signs (principal); R94.8 Abnormal results of function studies of other organs and systems
CPT/HCPCS: 82140; 85025

== ENCOUNTER 2020-01-11 13:22 | Outpatient (CLI) | payer MEDICARE ==
--- NOTE | 2020-01-11 14:14 | SLEEP CARE CONSULTATION ---
Information from patient questionnaire entered by Linda Mittal. I have reviewed and concur with the information entered by Linda Mittal. This document represents the service I personally performed and the decisions made by me, Elham Strickland ARNP. History of Present Illness Service Date and Time: 01/11/2020 1322 Reason for Visit: New patient Chief Complaint: reports: Insomnia (hard time getting to sleep), Unrefreshed sleep, Snoring (sometimes), Fatigue, Frequent awakenings at night, Other (low oxygen during the night at hospital). denies: Excessive daytime sleepiness, Observed pauses in breathing Date of Onset: 5 years Usual bedtime: 2300 Time it takes to fall asleep: 1 hour Snores at night: Yes (once in a while) Observed to quit breathing while asleep: Yes Sleeps alone due to snoring: No Number of times waking at night: 3 Reasons for waking at night: reports: Choking, Gasping for air, Bathroom. denies: Snoring Toss, Turn, or Twitch while sleeping: Yes Recalls having dreams: Yes Usually gets out of bed at: 4312-4804; sometimes dogs wake her up at 0400 and she stays awake Feels refreshed in the morning: No Morning headache: No Sleepy or fatigued during the day: Yes Ever fallen asleep while driving: No Takes day naps: No Dreams during day naps: No Prior sleep studies: No Additional HPI information: I had the pleasure of seeing JOSSELIN AGUSTIN today regarding the possibility of her having a sleep disorder. Her current complaints are insomnia, unrefreshed sleep, fatigue and frequent night awakenings. When in the hospital in October with pneumonia, they kept on asking if she had sleep apnea or was on a machine for breathing at night. She does have a sibling and her father who are treated for sleep apnea with CPAP machines. - Parasomnia Symptoms Ever been unable to move upon waking from sleep: No Walks in sleep: No Talks in sleep: No Ever acted out dreams in sleep: Yes Ever felt weak in the knees when startled or emotional: Yes Bothered by creepy, crawly, restless sensations in legs: Yes (has neuropathy) Problems with memory or concentration: Yes (trouble concentrating) Subjective Initial [place] Sleepiness Scale score: 3 (in 2019) Past Medical History Past Medical History: reports: Arthritis, Fibromyalgia, Other (neuropathy). denies: Hypertension, Claustrophobia, Congestive Heart Failure, Diabetes, Coronary Heart Disease, Arrythmia, Hypothyroidism, Anxiety, Depression, Mood disorder, GERD, Attention deficit Social History The patient's occupation is retired. Patient is and lives in [place]. Have you smoked in the past 12 months: No Cigarettes per day (20/pack): 40 Years of smokin Quit date: 1999 Smoking Pack Years: 42.0 Alcohol use: Yes Alcohol amount and frequency: 2, 3x/week; varies Caffeine use: No Family History Family history of sleep disordered breathing: Yes Family Hx Sleep Apnea: Father: Snoring, Sleep apnea - Treated, Sibling: Snoring, Sleep apnea - Treated Allergies and Home Medications Drug allergies reviewed: Yes (NKDA) Home medication list reviewed: Yes Allergy and home medication list: Cymbalta 40 mg Review of Systems Weight gain over past 5 years: 20 Cardiovascular: reports: leg or foot swelling. denies: high blood pressure, palpitations, chest pain, irregular heart rate or pulse Respiratory: reports: shortness of breath Gastrointestinal: denies: heartburn, difficulty swallowing Urinary: reports: frequency Neurological: reports: gait or balance problems. denies: headaches, seizure, head trauma, speech dysfunction Psychiatric: denies: Attention Deficit Hyperactivity, anxiety, depression, mood disorder, claustrophobia Ear/Nose/Throat: reports: nasal congestion (from allergies), dry mouth/throat (dry mouth every day), wisdom teeth removed. denies: sinus problems, nose bleeds, hoarseness, injury to nose, tonsillectomy Endocrine: reports: too hot or cold (*hot), excessive thirst. denies: thyroid disease Musculoskeletal: denies: joint pain, back pain, muscle pain or cramping, mobility problems Immunologic: reports: sneezing, rash, itching, allergies to food or environment (*environment) Physical Exam Blood Pressure: 132/84 Cuff size: long Heart Rate: 83 O2 Saturation: 98 Height: 5 ft 6 in Weight: 201 lb Body Mass Index: 32.4 BMI Classification: Obese Neck circumference: 16 (inches) HEENT: No craniofacial malformation Nostrils: patent to airflow Turbinates: normal Septum: midline Mouth and throat: narrow oropharynx Soft palate: normal Hard palate: normal Uvula: normal Uvula visualization: 25% Mallampati Class III Tongue: normal in size Tonsils: 2+ Chin and jaw: normal size and position Neck: normal w/o lymphadenopathy or thyromegaly Heart: regular rate and rhythm Lungs: clear bilaterally Impression and Plan 1. Suspected Obstructive Sleep Apnea-Hypopnea Syndrome, as suggested by a hist ory of loud and irregular snoring, gasping or choking in sleep, frequent awakening during the night, unrefreshed sleep, cognitive impairment, and excessive daytime sleepiness. I explained to patient that a narrow oropharynx and obesity are common predisposing factors for obstructive sleep apnea-hypopnea syndrome. Patient concerned that she may not be able to fall asleep the night of the study. I offered a single dose of Ambien 5 mg to take the night of the study. Patient states she has never taken this but does not believe she is allergic to it. She agrees to this plan of care. I recommend proceeding to polysomnography to confirm the diagnosis and to assess severity. If the patient has significant sleep disordered breathing, a manual CPAP titration study will also be performed to find the optimal treatment pressure. I informed the patient of what the sleep studies involve and after some discussion, obtained agreement to proceed. The pathophysiology of obstructive sleep apnea-hypopnea syndrome was discussed with the patient and health risks of cardiovascular and cerebrovascular disease if not treated. AASM brochure for obstructive sleep apnea-hypopnea syndrome given and reviewed. Risks of drowsy driving discussed in detail and patient advised to avoid long distance driving and to machine tack puller at the first sign of drowsiness. Patient agreed to plan. * Schedule polysomnography +- manual CPAP titration study. * 5 mg Zolpidem prescribed for night of study only, one tablet. * Avoid long distance driving or driving when feeling sleepy. * Avoid alcohol, sedative and muscle relaxant around bedtime. * Attempt to lose weight. * Review instructions provided by trained office staff on how to prepare for the sleep study. * Return for follow-up after sleep study completed. Visit Type: In Office Time Spent with Patient (minutes): 33 Provider Statement: I spent 100% of the Face to Face Visit with the patient with greater than 50% spent counseling the patient and coordination of care.
[2020-01-11 14:15] VITALS: BP 132/84
== END 2020-01-11 13:23 | disposition home or self-care (01) ==
LOC: SC 13:22
PROVIDERS: ATTEND Nurse Practitioner Family
DX: G47.10 Hypersomnia, unspecified (principal); G47.8 Other sleep disorders; R06.83 Snoring; E66.9 Obesity, unspecified; Z68.32 Body mass index [BMI] 32.0-32.9, adult
CPT/HCPCS: 99204; G0463; 99212

== ENCOUNTER 2020-02-03 10:48 | Outpatient (CLI) | payer MEDICARE | END 2020-02-03 10:49 | disposition home or self-care (01) | LOC: SC 10:48 | PROVIDERS: ATTEND Nurse Practitioner Family | DX: G47.33 Obstructive sleep apnea (adult) (pediatric) (principal); R09.02 Hypoxemia; R00.0 Tachycardia, unspecified; E66.9 Obesity, unspecified; Z68.32 Body mass index [BMI] 32.0-32.9, adult | CPT/HCPCS: G0399 ×2; 95806 ==

== ENCOUNTER 2020-02-14 12:55 | Outpatient (CLI) | payer MEDICARE ==
--- NOTE | 2020-02-14 13:25 | SLEEP CARE CONSULTATION ---
Information from patient questionnaire entered by Selena Morales. I have reviewed and concur with the information entered by Selena Morales. This document represents the service I personally performed and the decisions made by me, Elham Strickland ARNP. History of Present Illness Service Date and Time: 02/14/2020 1255 Initial [place] Sleepiness Scale score: 3 (in 2020) Current [place] Sleepiness Scale score: 6 Additional HPI information: JOSSELIN AGUSTIN returns with spouse for follow up and results of the recently performed home sleep study. I explained the pathophysiology behind obstructive sleep apnea. We then spent quite a bit of time discussing different treatment options. For mild obstructive sleep apnea, surgery and oral appliance are alternatives to nasal CPAP therapy but in moderate or severe cases, nasal CPAP is the most effective and reliable treatment. Because apnea is primarily in supine position, then positional management therapy could be effective. Methods discussed such as positioning with pillows, using a T-shirt with tennis balls in the back, and shown commercial products that have a pillow format on back to prevent supine sleep. I reviewed the impact of weight changes on sleep apnea and strongly recommended losing weight. After some discussion, the patient opted to go with the nasal CPAP therapy. Nasal autoCPAP set at 4-15 cmH20 will be ordered with rationale explained. A manual titration study will be ordered if unable to find optimal pressure with office adjustments. I explained how CPAP machine works with sample devices Respironics Dreamstation and ReseCardio [id number] and what to expect when using the machine. Using CPAP every night in order to get used to it was emphasized. Patient advised to put CPAP mask on before getting into bed so as not to fall asleep without CPAP. To assist acclimation to CPAP use, it could also be used for a short time during day while reading or watching TV. The patient was instructed to call the CPAP supplier to discuss any mechanical problem that may occur. If the mask given is uncomfortable or is difficult to keep on through the night even with adjustment, contact the CPAP supplier as many will replace with another mask style if notifi ed before 30 days. If snoring or perceives is not getting enough air or too much air from the machine, notify this office. Patient counseled not drink alcohol less than 4 hours before bedtime as it can increase snoring and apnea. Patient was cautioned about risks of drowsy driving until sleepiness symptoms resolve. Sleep Study - Results Type of Sleep Study: Home sleep study Prior sleep studies: No Polysomnography/Home Sleep Study results: Physician Impression: The quality of the study is good. The length of the study is adequate (> 240 minutes). Please also see the tabulated and graphic data. 1. Obstructive Sleep Apnea-Hypopnea (ICD-10 G47.33), moderate, with an AHI of 27.8/hr and christen SaO2 of 53%. During the study, the patient had 149 apneas (148 obstructive, 0 central, 1 mixed) and 169 hypopneas. The longest episode lasted 69.0 seconds. The respiratory events occurred more frequently during supine sleep (supine AHI was 28.0 and non-supine, 23.66). 2. Hypoxemia (ICD-10 R09.02), severe, with the lowest oxygen saturation of 53 % and 320.7 minutes with SaO2 under 90%. Baseline oxygen saturation was also low (Average oxygen saturation was 88%). 3. Tachycardia, with maximum recorded heart rate of 147 beats per minute. Allergies and Home Medications Drug allergies reviewed: Yes (NKDA) Home medication list reviewed: Yes (no changes) Review of Systems Review of systems same as previous: Yes (no changes) Physical Exam Heart Rate: 93 O2 Saturation: 96 Height: 5 ft 6 in Weight: 207 lb Body Mass Index: 33.4 BMI Classification: Obese Impression and Plan 1. Obstructive Sleep Apnea-Hypopnea Syndrome, moderate, with lowest oxygen saturation of 53%. Obviously this is the cause of the patients symptoms of unrefreshed sleep, and excessive daytime sleepiness. Positive pressure therapy could benefit her overall health, including fibromyalgia. As mentioned above, the patient will be started on nasal autoCPAP therapy with pressure set at 4-15 cmH2O. A manual titration study will be completed if unable to find optimal treatment pressure with office adjustments. Compliance guidelines also reviewed. A copy of compliance guidelines will be given for reference at check out. Because the apnea is more severe supine, I instructed to avoid sleeping supine using pillow positioning until able to start CPAP use. 2. Tachycardia. Heart rate maximum measured to 147. Patient advised to follow up with PCP for further evaluation for tachycardia. * Nasal auto CPAP therapy, pressure at 4-15 cm H2O. * Follow up with PCP for tachycardia. * Attempt to lose weight. * Avoid alcohol consumption near bedtime. * Avoid supine sleep until using CPAP. * The patient is again cautioned about driving until sleepiness completely resolves. * Return one month after CPAP obtained. I will assess response to therapy and compliance at that time. Counseling Topics: Sleeping position, Weight loss health impact Follow up with: PCP (for tachycardia) Visit Type: In Office Time Spent with Patient (minutes): 20 Provider Statement: I spent 100% of the Face to Face Visit with the patient with greater than 50% spent counseling the patient and coordination of care.
== END 2020-02-14 12:56 | disposition home or self-care (01) ==
LOC: SC 12:55
PROVIDERS: ATTEND Nurse Practitioner Family
DX: G47.33 Obstructive sleep apnea (adult) (pediatric) (principal); R09.02 Hypoxemia; R00.0 Tachycardia, unspecified; E66.9 Obesity, unspecified; Z68.33 Body mass index [BMI] 33.0-33.9, adult
CPT/HCPCS: 99213; G0463; 99212

== ENCOUNTER 2020-04-12 13:49 | Outpatient (CLI) | payer MEDICARE ==
--- NOTE | 2020-04-12 14:20 | SLEEP CARE CONSULTATION ---
Information from patient questionnaire entered by Selena Morales. I have reviewed and concur with the information entered by Selena Morales. This document represents the service I personally performed and the decisions made by me, Elham Strickland ARNP. History of Present Illness Service Date and Time: 04/12/2020 1349 Previous diagnosis: Moderate, Obstructive Sleep Apnea-Hypopnea Syndrome AHI: 27.8 (in 2019) Reason for follow up: first compliance Equipment type: CPAP Equipment obtained from: Other ([facility]; getting supplies as needed) Mask style: Nasal pillows Backup mask available: No (keep old mask for backup when replaced) Last cushion change: 6 weeks Prior sleep studies: Yes Year and Where: 2019 [facility] Type of Sleep Study: Home sleep study HPI additional information: JOSSELIN AGUSTIN was diagnosed to have moderate, AHI 27.8, obstructive sleep apnea-hypopnea syndrome and returned today for CPAP therapy first compliance follow-up. CPAP Compliance Data - Data Reviewed with Patient Average duration of nightly device use: 6 hr 32 min Compliance rate %: 80 (initial 30)(60 last 30 days) Current pressure setting (cmH2O): 4-15 Humidity settin Average residual AHI: 6.9 Subjective Missed days of use due to: reports: illness (sinus infection) Patient concerns: reports: air blowing in eyes (just had corrective eye surgery, has dry eyes; she is using eye drops, clears up quickly), dry mouth, nose, throat, epistaxis (a little bloody snot but nothing serious). denies: aerophagia, mask discomfort, mask leak noise, condensation in mask/hose, nasal congestion, other Observed to snore while using device: No Current pressure setting perceived as: comfortable On therapy, patient: reports: sleeping better, awakening more refreshed, being more awake and alert during the day, more rested overall. denies: drowsiness while driving Initial [place] Sleepiness Scale score: 3 (in 2019) Current [place] Sleepiness Scale score: 3 Allergies and Home Medications Drug allergies reviewed: Yes (NKDA) Home medication list reviewed: Yes ([place]) Review of Systems Review of systems same as previous: Yes (no changes) Physical Exam Heart Rate: 102 O2 Saturation: 98 Height: 5 ft 6 in Weight: 208 lb Body Mass Index: 33.5 BMI Classification: Obese Impression and Plan 1. Obstructive Sleep Apnea-Hypopnea Syndrome, moderate, with fair treatment compliance and fair apnea control with an elevated residual AHI. On CPAP therapy, the patient has better sleep quality and is more rested overall. Her median pressure is 8.4 cm H2O, 95% average 12.4 cm H2O and maximum pressure at 13.9 cm H2O. The patients pressure will be changed to autoCPAP 9-14 cmH20 or elevation of residual AHI and to reflect pressure used. Patient advised to contact me if pressure change is uncomfortable so that it can be adjusted. Goals for apnea control discussed. She has had some problem with air leaking into eyes. She recently had eye surgery and has extra dry eyes right now and is applying eye drops for moisture. I advised her to try a gel moisture drop that her eye doctor can recommend and try a sleeping mask that covers her eyes to reduce air in her eyes drying them during the night. She has also had some oral dryness and a few bloody noses. Oral dryness and epistaxisis can be reduced by adjusting humidity setting higher or heated hose lower or by adjusting both settings. Oral instructions given on how to change humidity and heated hose settings with rationale explaining why to change. Patient's apnea severity and rationale for treatment to reduce apnea, improve sleep quality and reduce cardiovascular and cerebrovascular events was reviewed. I also reviewed the benefit of consistent device use of CPAP for fibromyalgia. * Changeauto CPAP pressure to 9-14 cmH2O * Notify me if snoring with mask or feeling that the pressure is too much or too little * Attempt to lose weight * Call this office if any problems using CPAP * Return for follow up in 1-2 months, or sooner if concerns arise Counseling Topics: Spare mask, Weight loss health impact Visit Type: In Office Time Spent with Patient (minutes): 20 Provider Statement: I spent 100% of the Face to Face Visit with the patient with greater than 50% spent counseling the patient and coordination of care.
== END 2020-04-12 13:50 | disposition home or self-care (01) ==
LOC: SC 13:49
PROVIDERS: ATTEND Nurse Practitioner Family
DX: G47.33 Obstructive sleep apnea (adult) (pediatric) (principal); E66.9 Obesity, unspecified; Z68.33 Body mass index [BMI] 33.0-33.9, adult
CPT/HCPCS: 99213; G0463; 99212

== ENCOUNTER 2020-05-29 10:38 | Outpatient (CLI) | payer MEDICARE ==
--- NOTE | 2020-05-29 11:23 | SLEEP CARE CONSULTATION ---
Information from patient questionnaire entered by Selena Morales. I have reviewed and concur with the information entered by Selena Morales. This document represents the service I personally performed and the decisions made by me, Elham Strickland ARNP. History of Present Illness Service Date and Time: 05/29/2020 1038 Previous diagnosis: Moderate, Obstructive Sleep Apnea-Hypopnea Syndrome AHI: 27.8 (in 2019) Reason for follow up: other (6 week with pressure change) Equipment type: CPAP Equipment obtained from: Other ([facility]; getting supplies as needed) Mask style: Nasal pillows Backup mask available: Yes (other mask) Last cushion change: 6 weeks Prior sleep studies: Yes Year and Where: 2019 [facility] Sleep Type of Sleep Study: Home sleep study HPI additional information: JOSSELIN AGUSTIN was diagnosed to have moderate, AHI 27.8, obstructive sleep apnea-hypopnea syndrome and returned today for CPAP therapy 6 week with pressure change follow-up. She states her dog had an embolism and she has been taking care of the dog downstairs at night, spending it with the dog and did not want to bring the machine down. CPAP Compliance Data - Data Reviewed with Patient Average duration of nightly device use: 2 hr 47 min Compliance rate %: 3 Current pressure setting (cmH2O): 9-14 (10.6 median, 12.0 average, 12.3 maximum) Humidity settin Average residual AHI: 0.9 Subjective Missed days of use due to: reports: family emergency, illness (pet dog had an embolism) Patient concerns: reports: air blowing in eyes, nasal congestion, dry mouth, nose, throat (dry mouth). denies: aerophagia, mask discomfort, mask leak noise, condensation in mask/hose, epistaxis, other Observed to snore while using device: No Current pressure setting perceived as: too high (due to the leaking into her eyes) On therapy, patient: reports: sleeping better, awakening more refreshed, being more awake and alert during the day, more rested overall. denies: drowsiness while driving Initial [place] Sleepiness Scale score: 3 (in 2019) Allergies and Home Medications Drug allergies reviewed: Yes (NKDA) Home medication list reviewed: Yes (no changes) Review of Systems Review of systems same as previous: Yes (no changes) Physical Exam Heart Rate: 99 O2 Saturation: 98 Height: 5 ft 6 in Weight: 215 lb Body Mass Index: 34.7 BMI Classification: Obese Impression and Plan 1. Obstructive Sleep Apnea-Hypopnea Syndrome, moderate, with poor treatment compliance and good apnea control. On CPAP therapy, the patient has better sleep quality and is more rested overall. Josselin has not been using her machine because her dog had an embolism and she has been taking care of it during the night downstairs. She has not wanted to bring it downstairs to sleep with it on. I strongly advised her to bring the machine down is she is going to sleep downstairs with her dog so she might be able to sleep better herself and have the energy to care for her sick dog. She voiced understanding and agreement with this plan. Josselin has been getting air leaking into her eyes. She has had an eye surgery with problems with dry eyes in the past. She is using a nasal pillows mask that is extra small and may benefit from trying an over the nose Wisp type mask. She agreed to try this mask. She was also encouraged to get a sleep mask to cover her eyes and use an OTC moisturizing gel eye drop before going to bed. She voiced understanding. She has been getting some mouth dryness and her humidity setting is at 6. Oral dryness can be reduced by adjusting humidity setting higher or heated hose lower or by adjusting both settings. She was encouraged to increase her setting to 7 and she may increase the heated hose if she has any condensation. I will adjust her pressure to 8-12 cmH2O, this will reduce feeling of pressure being too high. She has good apnea control with current range with some room for this adjustment. Patient's apnea severity and rationale for treatment to reduce apnea, improve sleep quality and reduce cardiovascular and cerebrovascular events was reviewed. I also reviewed the benefit of consistent device use of CPAP for fibromyalgia. * Change auto CPAP pressure to 8-12 cmH2O * try an over the nose (Wisp type mask) * Notify me if snoring with mask or feeling that the pressure is too much or too little * Attempt to lose weight * Call this office if any problems using CPAP * Return for follow up in 1-2 months, or sooner if concerns arise Counseling Topics: Spare mask, Weight loss health impact Visit Type: In Office Time Spent with Patient (minutes): 29 Provider Statement: I spent 100% of the Face to Face Visit with the patient with greater than 50% spent counseling the patient and coordination of care.
== END 2020-05-29 10:39 | disposition home or self-care (01) ==
LOC: SC 10:38
PROVIDERS: ATTEND Nurse Practitioner Family
DX: G47.33 Obstructive sleep apnea (adult) (pediatric) (principal); E66.9 Obesity, unspecified; Z68.34 Body mass index [BMI] 34.0-34.9, adult
CPT/HCPCS: 99213; G0463; 99212

== ENCOUNTER 2020-06-06 08:35 | Outpatient (CLI) | payer MEDICARE ==
--- NOTE | 2020-06-06 14:57 | Mammography Report ---
BILATERAL DIGITAL DIAGNOSTIC MAMMOGRAM 3D/2D: 06/06/2020 CLINICAL: Diagnostic per Physician request. No current breast complaints. Comparison is made to exams dated: 11/20/2014 mammogram and 11/15/2014 mammogram - [facility]. The tissue of both breasts is heterogeneously dense. This may lower the sensitivity of ma mmography. There are grouped punctate round calcifications in the right breast at 1 o'clock middle depth. These are increased in number of calcifications. There is an oval equal density mass with an obscured and circumscribed margin in the left breast cent ral to the nipple anterior depth. No other significant masses or calcifications are seen in either breast. IMPRESSION: INCOMPLETE: NEEDS ADDITIONAL IMAGING EVALUATION The grouped punctate round calcifications in the right breast at 1 o'clock middle depth are probably benign. A follow-up mammogram in 6 months is recommended. The oval equal density mass in the left breast central to the nipple anterior depth is indeterminate. An ultrasound is recommended. Ultrasound will be performed immediately following the current exam. This exam was interpreted at Station ID: [id number]. NOTE: For mammograms, a report in lay terms will be sent to the patient. Approximately 15% of breast malignancies will not be visualized mammographically. In the management of a palpable breast mass, a negative mammogram must not discourage biopsy of a clinically suspicious lesion. Electronically Signed By: John Cordova M.D. ddp/:06/06/2020 10:01:55 ACR BI-RADS Category 0: Incomplete 3340F PARENCHYMAL PATTERN: (D) - The breast(s) demonstrate(s) heterogeneously dense fibroglandular parenchy ma. BI-RADS CATEGORY: (0) - 0 Ultrasound [id number] Immediate follow-up LATERALITY: (B)
--- NOTE | 2020-06-06 14:57 | Ultrasound Report ---
LIMITED ULTRASOUND OF LEFT BREAST: 06/06/2020 CLINICAL: Patient returns for additional imaging over a suspected mass in the left breast. Comparison is made to exams dated: 06/06/2020 mammogram, 12/27/2014 stereotactic biopsy, 11/20/2014 mamm ogram, and 11/15/2014 mammogram - [facility]. Color flow and real-time ultrasound of the left breast retroareolar were performed on the areas of i nterest. There is a benign 0.6 cm x 0.5 cm x 0.5 cm oval cyst with a smooth internal wall in the left breast c entral to the nipple in the retroareolar region. This oval cyst is anechoic with a well-defined boun ashwini and posterior acoustic enhancement. This correlates with mammography findings. Color flow imag ing demonstrates that there is no vascularity present. IMPRESSION: PROBABLY BENIGN There is no sonographic evidence of malignancy. The 0.6 cm x 0.5 cm x 0.5 cm oval cyst in the left breast is consistent with a simple cyst and is dav ign. A 1 year screening mammogram is recommended for the left breast. A 6 month followup mammogram is recommended for calcifications in the right breast. This exam was interpreted at Station ID: [id number]. Electronically Signed By: John Cordova M.D. ddshaw/:06/06/2020 14:21:55 Ultrasound BI-RADS: 3 Probably benign BI-RADS CATEGORY: (3) - 3 RECOMMENDATION: (ANNUAL) - Recommend routine annual screening mammography. [id number] 1 year screening LATERALITY: (B)
== END 2020-06-06 08:36 | disposition home or self-care (01) ==
LOC: DI 08:35
PROVIDERS: ATTEND Physician Assistant Medical
DX: R92.8 Other abnormal and inconclusive findings on diagnostic imaging of breast (principal)

== ENCOUNTER 2020-07-26 10:49 | Outpatient (CLI) | payer MEDICARE ==
--- NOTE | 2020-07-26 11:12 | SLEEP CARE CONSULTATION ---
Information from patient questionnaire entered by Selena Morales. I have reviewed and concur with the information entered by Selena Morales. This document represents the service I personally performed and the decisions made by , Elham Strickland ARNP. History of Present Illness Service Date and Time: 07/26/2020 1049 Previous diagnosis: Moderate, Obstructive Sleep Apnea-Hypopnea Syndrome AHI: 27.8 (in 2019) Reason for follow up: other (2 month with pressure change) Equipment type: CPAP Equipment obtained from: Other ([facility]; getting supplies as needed) Mask style: Nasal pillows Backup mask available: Yes (other mask) Last cushion change: 1 month Prior sleep studies: Yes Year and Where: 2019 [facility] Sleep Type of Sleep Study: Home sleep study HPI additional information: JOSSELIN AGUSTIN was diagnosed to have moderate, AHI 27.8, obstructive sleep apnea-hypopnea syndrome and returned today for CPAP therapy 2 month pressure change follow-up. CPAP Compliance Data - Data Reviewed with Patient Average duration of nightly device use: 6 hr 13 min Compliance rate %: 83 (60 days) Current pressure setting (cmH2O): 8-12 Humidity settin Average residual AHI: 3.4 Central apnea: 0.3 Obstructive apnea: 1.9 Subjective Missed days of use due to: reports: illness, travel, other (no power) Patient concerns: reports: air blowing in eyes (recent eye surgery, may be why eyes are feeling dry; using OTC eye drops), dry mouth, nose, throat (once in a while). denies: aerophagia, mask discomfort, mask leak noise, condensation in mask/hose, nasal congestion, epistaxis, other Observed to snore while using device: No Current pressure setting perceived as: comfortable On therapy, patient: reports: sleeping better, awakening more refreshed, being more awake and alert during the day, more rested overall. denies: drowsiness w hile driving Initial [place] Sleepiness Scale score: 3 (in 2019) Current [place] Sleepiness Scale score: 4 Allergies and Home Medications Drug allergies reviewed: Yes (NKDA) Home medication list reviewed: Yes (no changes) Review of Systems Review of systems same as previous: Yes (no changes) Physical Exam Heart Rate: 84 O2 Saturation: 98 Height: 5 ft 6 in Weight: 212 lb Body Mass Index: 34.2 BMI Classification: Obese Impression and Plan 1. Obstructive Sleep Apnea-Hypopnea Syndrome, moderate, with good treatment compliance and good apnea control. On CPAP therapy, the patient has better sleep quality and is more rested overall. She has some dry eye issues since having eye surgery and is using moisturizing eye drops as needed. She is not sure that she is having air leaking into her eyes. She also states the dry mouth is intermittent. Her compliance has been reached and she is now doing well. I will have her follow up in about 3 months to check in with how she is doing. She voiced understanding. Patient's apnea severity and rationale for treatment to reduce apnea, improve sleep quality and reduce cardiovascular and cerebrovascular events was reviewed. I also reviewed the benefit of consistent device use of CPAP for fibromyalgia. * Continue auto CPAP pressure at 8-12 cmH2O * Notify me if snoring with mask or feeling that the pressure is too much or too little * Attempt to lose weight * Call this office if any problems using CPAP * Return for follow up in 3 months, or sooner if concerns arise Counseling Topics: Spare mask, Weight loss health impact Visit Type: In Office Time Spent with Patient (minutes): 16 Provider Statement: I spent 100% of the Face to Face Visit with the patient with greater than 50% spent counseling the patient and coordination of care.
== END 2020-07-26 10:50 | disposition home or self-care (01) ==
LOC: SC 10:49
PROVIDERS: ATTEND Nurse Practitioner Family
DX: G47.33 Obstructive sleep apnea (adult) (pediatric) (principal); E66.9 Obesity, unspecified; Z68.34 Body mass index [BMI] 34.0-34.9, adult
CPT/HCPCS: 99212; G0463

== ENCOUNTER 2020-10-30 10:46 | Outpatient (CLI) | payer MEDICARE ==
--- NOTE | 2020-10-30 11:13 | SLEEP CARE CONSULTATION ---
Information from patient questionnaire entered by Selena Morales. I have reviewed and concur with the information entered by Selena Morales. This document represents the service I personally performed and the decisions made by , Elham Strickland ARNP. History of Present Illness Service Date and Time: 10/30/2020 1046 Previous diagnosis: Moderate, Obstructive Sleep Apnea-Hypopnea Syndrome AHI: 27.8 (in 2019) Reason for follow up: three month Equipment type: CPAP Equipment obtained from: Other ([facility]; getting supplies as needed) Mask style: Nasal pillows Backup mask available: Yes (old mask) Last cushion change: 1 month Prior sleep studies: Yes Year and Where: 2019 [facility] Sleep Type of Sleep Study: Home sleep study HPI additional information: JOSSELIN AGUSTIN was diagnosed to have moderate, AHI 27.8, obstructive sleep apnea-hypopnea syndrome and returned today for CPAP therapy three month follow- up. CPAP Compliance Data - Data Reviewed with Patient Average duration of nightly device use: 6 hr 6 min Compliance rate %: 82 (90 days) Current pressure setting (cmH2O): 8-12 Humidity settin Average residual AHI: 2.5 Central apnea: 0.1 Obstructive apnea: 1.2 Subjective Missed days of use due to: reports: travel Patient concerns: reports: dry mouth, nose, throat (nothing major, drinks water at night to help). denies: aerophagia, mask discomfort, air blowing in eyes, mask leak noise, condensation in mask/hose, nasal congestion, epistaxis, other Observed to snore while using device: No Current pressure setting perceived as: comfortable On therapy, patient: reports: sleeping better, awakening more refreshed, being more awake and alert during the day, more rested overall. denies: drowsiness while driving (seldom drives) Initial [place] Sleepiness Scale score: 3 (in 2019) Current [place] Sleepiness Scale score: 5 Allergies and Home Medications Home medication list reviewed: Yes (no changes) Review of Systems Review of systems same as previous: Yes (no changes) Physical Exam Heart Rate: 96 O2 Saturation: 97 Height: 5 ft 6 in Weight: 216 lb Body Mass Index: 34.8 BMI Classification: Obese Impression and Plan 1. Obstructive Sleep Apnea-Hypopnea Syndrome, moderate, with good treatment compliance and good apnea control. On CPAP therapy, the patient has better sleep quality and is more rested overall. Patient has been getting from her CPAP therapy with significant improvement of her apneas. She has no major complaints with CPAP use. She does get some mouth and throat dryness but states keeping a drink next to the bed helps a lot. Oral dryness can be reduced by adjusting humidity setting higher or heated hose lower or by adjusting both settings. Verbal instructions given on how to change humidity and heated hose settings with rationale explaining why to change. I will follow up with patient in about 6 months, sooner if she should have issues. Patient feels she has been gaining weight since the Covid pandemic started. I encouraged her to try to find ways to improve her diet and lose weight. Patient voiced understanding and agreement with plan of care. Patient's apnea severity and rationale for treatment to reduce apnea, improve sleep quality and reduce cardiovascular and cerebrovascular events was reviewed. I also reviewed the benefit of consistent device use of CPAP for fibromyalgia. * Continue auto CPAP pressure at 8-12 cmH2O * Notify me if snoring with mask or feeling that the pressure is too much or too little * Attempt to lose weight * Call this office if any problems using CPAP * Return for follow up in 6 months, or sooner if concerns arise Counseling Topics: Spare mask, Weight loss health impact Visit Type: In Office Time Spent with Patient (minutes): 14 Provider Statement: I spent 100% of the Face to Face Visit with the patient with greater than 50% spent counseling the patient and coordination of care.
== END 2020-10-30 10:47 | disposition home or self-care (01) ==
LOC: SC 10:46
PROVIDERS: ATTEND Nurse Practitioner Family
DX: G47.33 Obstructive sleep apnea (adult) (pediatric) (principal); E66.9 Obesity, unspecified; Z68.34 Body mass index [BMI] 34.0-34.9, adult
CPT/HCPCS: 99212; G0463

== ENCOUNTER 2021-01-10 07:54 | Outpatient (CLI) | payer MEDICARE ==
--- NOTE | 2021-01-11 10:35 | Mammography Report ---
UNILATERAL RIGHT DIGITAL DIAGNOSTIC MAMMOGRAM 3D/2D: 01/10/2021 CLINICAL: Patient returns for 6 month follow up on right breast calcifications. Comparison is made to exams dated: 06/06/2020 ultrasound, 06/06/2020 mammogram, 12/27/2014 stereotactic b iopsy, 11/20/2014 mammogram, and 11/15/2014 mammogram - [facility]. The tissue of ri ght breast is heterogeneously dense. This may lower the sensitivity of mammography. There are grouped fine punctate round calcifications in the right breast at 1 o'clock posterior depth . These are not significantly changed. No other significant masses or calcifications are seen in the breast. IMPRESSION: PROBABLY BENIGN The grouped fine punctate round calcifications in the right breast are probably benign. A follow-up mammogram in 6 months is recommended. A follow-up mammogram in 6 months is recommended to demonstrate stability. This exam was interpreted at Station ID: [id number]. NOTE: For mammograms, a report in lay terms will be sent to the patient. Approximately 15% of breast malignancies will not be visualized mammographically. In the management of a palpable breast mass, a negative mammogram must not discourage biopsy of a clinically suspicious lesion. Electronically Signed By: John Cordova M.D. ddshaw/abbe:01/10/2021 10:06:33 ACR BI-RADS Category 3: Probably benign 3343F PARENCHYMAL PATTERN: (D) - The breast(s) demonstrate(s) heterogeneously dense fibroglandular parwilliy ma. BI-RADS CATEGORY: (3) - 3 Mammogram [id number] 6 month follow-up LATERALITY: (B)
== END 2021-01-10 07:55 | disposition home or self-care (01) ==
LOC: DI 07:54
PROVIDERS: ATTEND Physician Assistant Medical
DX: R92.1 Mammographic calcification found on diagnostic imaging of breast (principal)

== ENCOUNTER 2021-03-14 07:27 | Outpatient (CLI) | payer MEDICARE ==
--- NOTE | 2021-03-14 11:33 | Ultrasound Report ---
PROCEDURE: Abdomen Limited INDICATIONS: Hepatitis B, Elevated Liver Enzymes TECHNIQUE: Real-time focused scanning was performed of the right upper quadrant, with image documentation. COMPARISON: CT abdomen pelvis 10/06/2018. FINDINGS: The liver is diffusely increased in echogenicity with coarse sonographic echotexture consistent with fatty infiltration. This limits evaluation for focal hepatic lesions. No discrete hepatic mass identi fied. The liver appears enlarged, measuring approximate 22.8 cm. The main portal vein is patent and measures up to 1.6 cm. Hepatopedal flow is demonstrated. The gallbladder is surgically absent. No definite intrahepatic biliary ductal dilatation. The common bile duct is dilated, measuring up to 1.1 cm. The visualized pancreas appears unremarkable sonographically. The right kidney measures 11.2 cm. No hydronephrosis. IMPRESSION: 1. Increased hepatic echogenicity suggestive of steatosis and limiting evaluation for focal hepatic l esions. No definite hepatic mass identified sonographically but a small hepatic mass lesion cannot be excluded. 2. Biliary ductal dilatation, with the visualized common bile duct measuring up to 1.1 cm. This appea rs increased compared to the prior CT study given differences in technique. No discrete common duct s tone is visualized sonographically but correlation is recommended with laboratory values. If indicate d further evaluation may be obtained with an MRCP. Reviewed by: John Cordova MD on 03/14/2021 11:31 AM PST Approved by: John Cordova MD on 03/14/2021 11:31 AM PST Station ID: [id number]
== END 2021-03-14 07:28 | disposition home or self-care (01) ==
LOC: DI 07:27
PROVIDERS: ATTEND Physician Assistant Medical
DX: K83.8 Other specified diseases of biliary tract (principal); B18.1 Chronic viral hepatitis B without delta-agent; R74.8 Abnormal levels of other serum enzymes

== ENCOUNTER 2021-05-07 08:07 | Day surgery (SDC) | payer MEDICARE ==
[2021-05-07] MEDS ORDERED: LACTATED RINGERS 1,000 ML IV ONE (08:34)
--- NOTE | 2021-05-07 08:56 | ANESTHESIA ---
Pre-Anesthesia VS, & Labs - Diagnosis screening - Procedure colonoscopy w/biopsies Vital Signs: Temp Pulse Resp BP Pulse Ox 36.3 C L 109 H 14 143/77 H 98 05/07/21 08:15 05/07/21 08:15 05/07/21 08:15 05/07/21 08:15 05/07/21 08:15 Height: 5 ft 6 in Weight (kg): 96 kg Body Mass Index: 34.1 BMI Classification: Obese - NPO >8 hours - Is Patient ?: No - Lab Results Lab results reviewed: Yes Home Medications and Allergies Home Medications: Ambulatory Orders Cyclobenzaprine [Flexeril] 10 mg PO TID PRN 04/30/21 DULoxetine [Cymbalta] 20 mg PO DAILY 04/30/21 Aspirin Chewable [St Rick Aspirin] 81 mg PO DAILY 05/06/21 Cyclobenzaprine [Flexeril] 10 mg PO TID PRN 04/30/21 DULoxetine [Cymbalta] 20 mg PO DAILY 04/30/21 Aspirin Chewable [St Rick Aspirin] 81 mg PO DAILY 05/06/21 Allergies/Adverse Reactions: Allergies Allergy/AdvReac Type Severity Reaction Status Date / Time No Known Drug Allergies Allergy Verified 07/29/18 12:56 Anes History & Medical History - Anesthetic History Anesthesia Complications: reports: No previous complications Family history of Anesthesia Complications: Denies Family history of Malignant Hyperthermia: Denies - Medical History Cardiovascular: reports: None Pulmonary: reports: Pneumonia, Sleep apnea, CPAP use Gastrointestinal: reports: Colon polyps, Hepatitis Urinary: reports: Frequency Musculoskeletal: reports: Fibromyalgia, Chronic back pain Endocrine/Autoimmune: reports: None Skin: reports: Eczema Smoking Status: Never smoker - Surgical History General: reports: Cholecystectomy, Appendectomy Eyes Ears Nose Throat (EENT): reports: Cataracts, Tonsil/Adenoidectomy Gynecologic: reports: Hysterectomy, Oophrectomy Orthopedic: reports: Hip replacement, Shoulder arthroplasty Exam General: Alert, Oriented x3, Cooperative Dental: Poor dentition Mouth Openin Fingerbreadth Neck Mobility: Normal Mallampati classification: III Thyromental Distance: 4-6 cm Respiratory: Lungs clear, Normal breath sounds, No respiratory distress Cardiovascular: Regular rate (pt states she has irregular hr, regular on exam) Neurological: Normal speech Mental/Cognitive Status: Alert/Oriented X3, Normal for patient Cognitive Status: Within normal limits Plan Anesthesia Type: General Consent for Procedure(s) Verified and Reviewed: Yes Code Status: Attempt Resuscitation ASA classification: 3-Severe systemic disease Is this case an emergency?: No
[2021-05-07] MEDS ORDERED: PROPOFOL 500 MG/50 ML 500 MG/50 ML VIAL ONE (09:15)
[2021-05-07] MEDS ORDERED: PROPOFOL 200 MG/20 ML VIAL IVP ONE (09:15)
[2021-05-07] MEDS ORDERED: MIDAZOLAM 2 MG/2 ML VIAL ONE (09:16)
[2021-05-07] MEDS ORDERED: LACTATED RINGERS 150 ML IV ONE (09:52)
[2021-05-07 10:39] VITALS: BP 129/76
--- NOTE | 2021-05-07 10:41 | ANESTHESIA POST OP EVALUATION ---
Anesthesia Post Eval - Post Anesthesia Eval Vitals: Last Vital Signs Temp 36.5 C 05/07/21 10:35 Pulse 100 05/07/21 10:35 Resp 18 05/07/21 10:35 BP 129/76 05/07/21 10:35 Pulse Ox 98 05/07/21 10:35 CV Function Including HR & BP: Stable Pain Control: Satisfactory Nausea & Vomiting: Negative Mental Status: Baseline Respiratory Status: Airway Patent Hydration Status: Satisfactory Anesthesia Complications: None
== END 2021-05-07 08:08 | disposition home or self-care (01) ==
LOC: SDS 08:07
PROVIDERS: ATTEND Surgery
DX: Z12.11 Encounter for screening for malignant neoplasm of colon (principal); K64.8 Other hemorrhoids; R21 Rash and other nonspecific skin eruption; Q43.8 Other specified congenital malformations of intestine; F10.10 Alcohol abuse, uncomplicated; G47.33 Obstructive sleep apnea (adult) (pediatric); Z86.010 Personal history of colon polyps; Z87.891 Personal history of nicotine dependence; E66.9 Obesity, unspecified; Z68.34 Body mass index [BMI] 34.0-34.9, adult
CPT/HCPCS: G0105; J7120

== ENCOUNTER 2021-06-28 08:00 | Outpatient (CLI) | payer MEDICARE | END 2021-06-28 23:59 | disposition home or self-care (01) | LOC: LAB 08:00 | PROVIDERS: ATTEND Registered Nurse | DX: R31.9 Hematuria, unspecified (principal); R30.0 Dysuria | CPT/HCPCS: 87086 ==

== ENCOUNTER 2021-08-30 15:32 | Outpatient (CLI) | payer MEDICARE ==
--- NOTE | 2021-08-30 17:11 | CT Report ---
PROCEDURE: CT brain without contrast INDICATIONS: TRAUMATIC HEADACHE TECHNIQUE: Noncontrast 4.5 mm thick angled axial sections acquired from the foramen magnum to the vertex. For r adiation dose reduction, the following was used: automated exposure control, adjustment of mA and/or kV according to patient size. COMPARISON: None. FINDINGS: Image quality: Excellent. CSF spaces: Basal cisterns are patent. No extra-axial fluid collections. Ventricles are normal in size and shape. Brain: No midline shift. No intracranial masses or hemorrhage. Matson-white matter interface is norm al. In several left frontal sulci, there is a small focus of subarachnoid hemorrhage, noted on coron al image 13 and axial image 20 Skull and face: Calvarium and visualized facial bones are intact, without suspicious lesions. Right posterior parietal scalp hematoma noted. Sinuses: Visualized sinuses and mastoids are clear. IMPRESSION: 1. Subtle traumatic left frontal subarachnoid hemorrhage associated with right parietal scalp hematom a. Reviewed by: Bernardino Han MD on 08/30/2021 4:10 PM AKDT Approved by: Bernardino Han MD on 08/30/2021 4:10 PM AKDT Station ID: [id number]
== END 2021-08-30 15:33 | disposition home or self-care (01) ==
LOC: DI 15:32
PROVIDERS: ATTEND Physician Assistant Medical
DX: S06.6X9A Traumatic subarachnoid hemorrhage with loss of consciousness of unspecified duration, initial encounter (principal); S00.03XA Contusion of scalp, initial encounter

== ENCOUNTER 2021-08-30 18:15 | Emergency (ER) | payer MEDICARE ==
[2021-08-30] MEDS ORDERED: THIAMINE INJ 100 MG in SODIUM CHLORIDE 0.9% 50 ML IV STA (18:32)
--- NOTE | 2021-08-30 18:32 | ED Physician Documentation ---
PD HPI HEAD INJURY - Stated complaint Stated Complaint: ABNORMAL CT SCAN - Chief complaint Chief Complaint: Trauma Hd/Nk - History obtained from History obtained from: Patient, Family - Additional information Additional information: 66-year-old woman with history of fibromyalgia and potentially history of alcoholism presents after an outpatient CT showing subarachnoid hemorrhage. She has had 2 falls recently, one 2 months ago and one 2 weeks ago. She is sure she has not fallen since. The most recent fall was at 5 AM in the morning 2 weeks ago. She states that she just got up and because of her neuropathy had trouble managing and ended up falling and hitting her right occiput. There was no loss of consciousness. She mentioned it to her physician and subsequently a CT was done today showing a small amount of left frontal traumatic appearing subarachnoid hemorrhage. And was referred from clinic for same. She went home after the CAT scan before being called and did have some alcoholic beverages in the interim. She is here with her supportive head who is driving. Review of Systems Ten Systems: 10 systems reviewed and negative Constitutional: reports: Reviewed and negative Cardiac: reports: Reviewed and negative Respiratory: reports: Reviewed and negative PD PAST MEDICAL HISTORY - Past Medical History Cardiovascular: None Respiratory: Pneumonia, Sleep apnea, CPAP use Endocrine/Autoimmune: None GI: Colon polyps, Hepatitis HOSPITAL EDUCATION COORDINATOR: None : Frequency HEENT: None Psych: Anxiety Musculoskeletal: Fibromyalgia, Chronic back pain Derm: Eczema - Past Surgical History Past Surgical History: Yes General: Cholecystectomy, Appendectomy Ortho: Hip replacement, Shoulder arthroplasty /HOSPITAL EDUCATION COORDINATOR: Hysterectomy, Oophrectomy HEENT: Cataracts, Tonsil/Adenoidectomy - Present Medications Home Medications: Ambulatory Orders Medication Instructions Recorded Confirmed Cyclobenzaprine [Flexeril] 10 mg PO TID PRN 04/30/21 04/30/21 DULoxetine [Cymbalta] 20 mg PO DAILY 04/30/21 04/30/21 Aspirin Chewable [St Rick 81 mg PO DAILY 05/06/21 05/06/21 Aspirin] LORazepam [Ativan] 1 mg PO TID PRN #12 tablet 08/30/21 Magnesium Oxide [Mag Ox] 800 mg PO BID #14 tablet 08/30/21 Thiamine [Vitamin B-1] 100 mg PO DAILY #10 tablet 08/30/21 - Allergies Allergies/Adverse Reactions: Allergies Allergy/AdvReac Type Severity Reaction Status Date / Time No Known Drug Allergies Allergy Verified 08/30/21 18:23 - Social History Does the pt smoke?: No Smoking Status: Never smoker Does the pt drink ETOH?: Yes Does the pt have substance abuse?: No - Immunizations Immunizations are current?: Yes - POLST Patient has POLST: No PD ED PE NORMAL - Vitals Vital signs reviewed: Yes - General General: Alert and oriented X 3, Other (Mildly slurred speech and bloodshot eyes with nystagmus) - HEENT HEENT: PERRL - Neck Neck: Other (Mild upper C-spine tenderness) - Cardiac Cardiac: RRR, No murmur - Respiratory Respiratory: No respiratory distress, Clear bilaterally - Abdomen Abdomen: Non tender - Back Back: No CVA TTP, No spinal TTP - Derm Derm: Normal color, Warm and dry - Extremities Extremities: No edema, No calf tenderness / cord - Neuro Neuro: Alert and oriented X 3, seafood harvester 2-12 intact Eye Opening: Spontaneous Motor: Obeys Commands Verbal: Oriented GCS Score: 15 Results - Vitals Vitals: Vital Signs - 24 hr 08/30/21 08/30/21 08/30/21 18:18 18:32 19:22 Temperature 36.1 C L Heart Rate 114 H 106 H 102 H Respiratory 18 22 20 Rate Blood Pressure 132/76 H 136/79 H 129/66 O2 Saturation 97 97 98 08/30/21 08/30/21 08/30/21 20:00 20:30 21:00 Temperature Heart Rate 101 H 98 100 Respiratory 16 15 17 Rate Blood Pressure 100/63 130/71 115/68 O2 Saturation 96 98 100 08/30/21 08/30/21 21:33 21:41 Temperature Heart Rate 101 H 100 Respiratory 17 17 Rate Blood Pressure 112/60 112/60 O2 Saturation 100 99 Oxygen O2 Source Room air - Labs Labs: Laboratory Tests 08/30/21 08/30/21 08/30/21 18:37 18:37 18:37 WBC 9.7 RBC 3.03 L Hgb 11.1 L Hct 31.7 L MCV 104.6 H MCH 36.6 H MCHC 35.0 RDW 16.4 H Plt Count 105 L MPV 8.5 Neut # (Auto) 6.9 H Lymph # (Auto) 2.0 [place] # (Auto) 0.7 Eos # (Auto) 0.0 Baso # (Auto) 0.1 Absolute Nucleated RBC 0.00 Nucleated RBC % 0.0 PT 14.5 H INR 1.3 H Sodium 131 L Potassium 3.5 Chloride 89 L Carbon Dioxide 24 Anion Gap 18.0 H BUN 5 L Creatinine 0.6 Estimated GFR (MDRD) 100 Glucose 105 H Calcium 8.3 L Magnesium 1.0 L* Total Bilirubin 4.4 H AST 226 H ALT 66 H Alkaline Phosphatase 359 H Total Protein 8.7 H Albumin 3.1 L Globulin 5.6 H Albumin/Globulin Ratio 0.6 L Ethyl Alcohol 228.2 PD MEDICAL DECISION MAKING - ED course ED course: 66-year-old woman presents intoxicated with a 2-week-old fall and a subarachnoid hemorrhage related to same identified on outpatient CT imaging. I discussed the case by phone with Dr. Shilo Buck, neurosurgery at [facility] who recommended conservative management given the timeframe but does recommend repeat CT in the 4 to 6-hour time range after the original. The repeat CT was without change. I had a long talk with her and her . The is supportive and appears sober. We discussed the need to quit drinking. She did not seem receptive to this at first and I discussed with her that her liver enzymes are really not doing well. She stated she was going to go home "finish off the booze she has at home." I asked her if she meant she was going to throw them out and she said no and that she had heard he cannot quit drinking all of a sudden. We had a long discussion she does seem ready to quit drinking after a while but I do have my doubts. We settled on I would prescribe some Ativan but the would have to throw out all the alcohol in the house and hold the meds. Departure - Departure Disposition: 01 Home, Self Care Clinical Impression: Alcoholic liver disease, Subarachnoid hemorrhage, Hypomagnesemia Alcohol intoxication Qualifiers: Complication of substance-induced condition: uncomplicated Qualified Code(s): F10.920 - Alcohol use, unspecified with intoxication, uncomplicated Condition: Stable Record reviewed to determine appropriate education?: Yes Instructions: Cirrhosis Liver Dc, ED Alcohol Abuse Prescriptions: LORazepam [Ativan] 1 mg PO TID PRN #12 tablet PRN Reason: Anxiety Magnesium Oxide [Mag Ox] 800 mg PO BID #14 tablet Thiamine [Vitamin B-1] 100 mg PO DAILY #10 tablet Comments: As discussed, your liver is failing and you absolutely need to quit drinking. You were intoxicated tonight with a blood alcohol of 228. Follow-up with your primary care physician, next available appointment. They may want to refer you to a liver specialist. You have some electrolyte abnormalities also, also from drinking. For this we did give you some magnesium through your IV here and I am prescribing some magnesium for you to take for the next few days as well. Discharge Date/Time: 08/30/21 21:45
[2021-08-30 18:47] LABS: BASOPHILS # (AUTO) 0.1 10^3/uL (0.0-0.1); BASOPHILS % (AUTO) 0.8 %; EOSINOPHILS % (AUTO) 0.2 %; HCT - HEMATOCRIT 31.7 % (37.0-47.0); HGB - HEMOGLOBIN 11.1 g/dL (12.0-16.0); LYMPHOCYTES % (AUTO) 20.3 %; MEAN CORPUSCULAR HEMOGLOBIN 36.6 pg (27.0-31.0); MEAN CORPUSCULAR VOLUME 104.6 fL (81.0-99.0); MEAN PLATELET VOLUME 8.5 fL (7.9-10.8); MONOCYTES # (AUTO) 0.7 10^3/uL (0.0-1.0); MONOCYTES % (AUTO) 6.9 %; NEUTROPHILS # (AUTO) 6.9 10^3/uL (1.5-6.6); NEUTROPHILS % (AUTO) 71.2 %; PLT - PLATELET COUNT 105 10^3/uL (130-450); RED BLOOD COUNT 3.03 10^6/uL (4.20-5.40); RED CELL DISTRIBUTION WIDTH 16.4 % (12.0-15.0); WHITE BLOOD COUNT 9.7 x10^3/uL (4.8-10.8)
[2021-08-30 18:51] LABS: INR 1.3 (0.8-1.2); PT - PROTHROMBIN TIME 14.5 secs (9.9-12.6)
[2021-08-30 19:06] LABS: ALBUMIN 3.1 g/dL (3.2-5.5); ALBUMIN/GLOBULIN RATIO 0.6 (1.0-2.2); BILIRUBIN,TOTAL 4.4 mg/dL (0.2-1.0); CALCIUM 8.3 mg/dL (8.5-10.3); CREATININE 0.6 mg/dL (0.4-1.0); ETOH - ETHANOL 228.2 mg/dL; POTASSIUM 3.5 mmol/L (3.5-5.0); TOTAL PROTEIN 8.7 g/dL (6.7-8.2)
--- NOTE | 2021-08-30 19:11 | CT Report ---
PROCEDURE: CERVICAL SPINE WO INDICATIONS: neck injury TECHNIQUE: Noncontrast 3 mm thick sections acquired from the skull base to the T4 level. Sagittal and coronal r eformats were then constructed. For radiation dose reduction, the following was used: automated exp osure control, adjustment of mA and/or kV according to patient size. COMPARISON: CT chest 08/30/2021 FINDINGS: Image quality: Excellent. Bones: No fractures or dislocations. Visualized superior ribs are intact. Multilevel degenerative changes are present. Soft tissues: Prevertebral soft tissues are normal in thickness. No paravertebral hematomas. No ap ical pneumothoraces. IMPRESSION: No visualized fracture. Multilevel degenerative changes. Reviewed by: Hoa Ortega MD on 08/30/2021 7:10 PM PDT Approved by: Hoa Ortega MD on 08/30/2021 7:10 PM PDT Station ID: [id number]
[2021-08-30] MEDS ORDERED: MAGNESIUM SULFATE 2 GRAM 2 GM/50 ML BAG IV ONE (19:16)
--- NOTE | 2021-08-30 20:50 | CT Report ---
PROCEDURE: HEAD WO INDICATIONS: Reeval subarachnoid hemorrhage TECHNIQUE: Noncontrast 4.5 mm thick angled axial sections acquired from the foramen magnum to the vertex. For r adiation dose reduction, the following was used: automated exposure control, adjustment of mA and/or kV according to patient size. COMPARISON: CT head 08/30/2021 4:12 PM FINDINGS: Image quality: Excellent. The ventricular system and cortical sulci demonstrate atrophy, consistent for patient's stated age. There are areas of hypodensity in the periventricular and subcortical white matter. As identified on prior exam, there are several foci of hyperdensity within the left frontal sulcus, u nchanged. No new hemorrhage is identified. Right posterior parietal scalp hematoma. No mass lesion or midline shift. Brainstem is unremarkable. Globes are symmetrical. Sinuses are aerated. Osseous structures are intact. IMPRESSION: Unchanged appearance of minimal left frontal subarachnoid hemorrhage. Reviewed by: Hoa Ortega MD on 08/30/2021 8:48 PM PDT Approved by: Hoa Ortega MD on 08/30/2021 8:48 PM PDT Station ID: [id number]
[2021-08-30 21:34] VITALS: BP 112/60
== END 2021-08-30 21:45 | disposition home or self-care (01) ==
LOC: ED 18:15
DX: I60.9 Nontraumatic subarachnoid hemorrhage, unspecified (principal); E83.42 Hypomagnesemia; F10.920 Alcohol use, unspecified with intoxication, uncomplicated
CPT/HCPCS: 36415; 70450; 72125; 80053; 83735; 85025; 85610; 96365; 96367; 99283; 99284; G0480; J3411; J7040; 80320

== ENCOUNTER 2021-09-02 16:31 | Outpatient (CLI) | payer MEDICARE ==
[2021-09-02 17:10] LABS: GLUCOSE, URINE (UA) NEGATIVE (NEGATIVE); KETONES,URINE (UA) 15 mg/dL (NEGATIVE); LEUKOCYTE ESTERASE, URINE LARGE (NEGATIVE); NITRITE,URINE NEGATIVE (NEGATIVE); OCCULT BLOOD,URINE MODERATE (NEGATIVE); PROTEIN,URINE NEGATIVE (NEGATIVE); UROBILINOGEN,URINE >=8.0 E.U./dL (NORMAL)
[2021-09-02 17:36] LABS: BILIRUBIN,URINE LARGE (NEGATIVE); ICTOTEST,URINE POSITIVE
[2021-09-02 17:37] LABS: BACTERIA,URINE Many /HPF (None Seen); CLARITY,URINE HAZY (CLEAR); SQUAMOUS EPITHELIAL CELL,UR MANY Squamous (<= Few); WBC CLUMPS,URINE PRESENT; WBC,URINE >25 /HPF (0-5)
== END 2021-09-02 23:59 | disposition home or self-care (01) ==
LOC: LAB.R 16:31
PROVIDERS: ATTEND Physician Assistant Medical
DX: Z87.440 Personal history of urinary (tract) infections (principal)
CPT/HCPCS: 81001; 87086

== ENCOUNTER 2021-09-06 16:31 | Outpatient (CLI) | payer MEDICARE | END 2021-09-06 16:32 | disposition critical access hospital (66) | LOC: EMS 16:31 | DX: R53.1 Weakness (principal); R46.4 Slowness and poor responsiveness; R51.9 Headache, unspecified; Z91.81 History of falling | CPT/HCPCS: A0425; A0429 ==

== ENCOUNTER 2021-09-06 16:52 | Emergency (ER) | payer MEDICARE ==
[2021-09-06] MEDS ORDERED: SODIUM CHLORIDE 0.9% 1,000 ML IV STA (17:00)
[2021-09-06] MEDS ORDERED: THIAMINE INJ 100 MG in SODIUM CHLORIDE 0.9% 50 ML IV STA (17:00)
--- NOTE | 2021-09-06 17:08 | ED Physician Documentation ---
PD HPI HEAD INJURY - Stated complaint Stated Complaint: GLF - Chief complaint Chief Complaint: Neuro - History obtained from History obtained from: Patient, Family, EMS - Additional information Additional information: 66-year-old woman who was seen here on 30 [address] outpatient CT showed subarachnoid hemorrhage after subacute falls. Repeat CT was unchanged and she went home and followed advice and actually quit drinking. Despite that she has been quite weak. Had another fall 5 or 6 days ago hitting her head again. Her is unable to care for her because she is so weak. She is not able to ambulate alone and he has basically carrying her around the house. 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 : Frequency HEENT: None Psych: Anxiety Musculoskeletal: Fibromyalgia, Chronic back pain Derm: Eczema - Past Surgical History Past Surgical History: Yes General: Cholecystectomy, Appendectomy Ortho: Hip replacement, Shoulder arthroplasty /EXCELSIOR MACHINE FEEDER: Hysterectomy, Oophrectomy HEENT: Cataracts, Tonsil/Adenoidectomy - Present Medications Home Medications: Ambulatory Orders Medication Instructions Recorded Confirmed Cyclobenzaprine [Flexeril] 10 mg PO TID PRN 04/30/21 04/30/21 DULoxetine [Cymbalta] 20 mg PO DAILY 04/30/21 04/30/21 Aspirin Chewable [St Rick 81 mg PO DAILY 05/06/21 05/06/21 Aspirin] LORazepam [Ativan] 1 mg PO TID PRN #12 tablet 08/30/21 Magnesium Oxide [Mag Ox] 800 mg PO BID #14 tablet 08/30/21 Thiamine [Vitamin B-1] 100 mg PO DAILY #10 tablet 08/30/21 - Allergies Allergies/Adverse Reactions: Allergies Allergy/AdvReac Type Severity Reaction Status Date / Time No Known Drug Allergies Allergy Verified 09/06/21 17:03 - Social History Does the pt smoke?: No Smoking Status: Never smoker Does the pt drink ETOH?: Yes Does the pt have substance abuse?: No - Immunizations Immunizations are current?: Yes - POLST Patient has POLST: No PD ED PE NORMAL - Vitals Vital signs reviewed: Yes - General General: Other (Slow confused speech, cooperative, A/O x2) - HEENT HEENT: PERRL, EOMI, Other (bloodshot conjunctiva) - Neck Neck: Supple, no meningeal sign, No bony TTP - Cardiac Cardiac: RRR, No murmur - Respiratory Respiratory: No respiratory distress, Clear bilaterally - Abdomen Abdomen: Normal bowel sounds, Soft, Non tender - Back Back: No CVA TTP, No spinal TTP - Derm Derm: Normal color, Warm and dry - Extremities Extremities: No edema, No calf tenderness / cord - Neuro Neuro: photo manager 2-12 intact Eye Opening: Spontaneous Motor: Obeys Commands Verbal: Confused GCS Score: 14 - Psych Psych: Normal mood, Normal affect Results - Vitals Vitals: Vital Signs - 24 hr 09/06/21 09/06/21 17:00 18:09 Temperature 36.9 C 36.7 C Heart Rate 116 H 110 H Respiratory 16 20 Rate Blood Pressure 125/72 136/79 H O2 Saturation 97 98 Oxygen O2 Source Room air - Labs Labs: Laboratory Tests 09/06/21 09/06/21 09/06/21 17:30 17:30 17:40 WBC 6.3 RBC 2.60 L Hgb 9.8 L Hct 27.3 L MCV 105.0 H MCH 37.7 H MCHC 35.9 RDW 16.2 H Plt Count 143 MPV 9.7 Neut # (Auto) 4.2 Lymph # (Auto) 0.9 L [place] # (Auto) 1.1 H Eos # (Auto) 0.0 Baso # (Auto) 0.0 Absolute Nucleated RBC 0.02 Nucleated RBC % 0.3 PT INR VBG pH 7.523 H VBG pCO2 38.5 L VBG pO2 23.4 L VBG HCO3 30.9 H VBG Total CO2 32.1 H VBG O2 Saturation 44.9 L VBG Base Excess 7.6 H Sodium Potassium Chloride Carbon Dioxide Anion Gap BUN Creatinine Estimated GFR (MDRD) Glucose Calcium Phosphorus Magnesium Total Bilirubin AST ALT Alkaline Phosphatase Ammonia Total Protein Albumin Globulin Albumin/Globulin Ratio Lipase Ethyl Alcohol Serum Ketones SARS-CoV-2 (PCR) NOT DETECTED 09/06/21 09/06/21 09/06/21 18:08 18:08 18:08 WBC RBC Hgb Hct MCV MCH MCHC RDW Plt Count MPV Neut # (Auto) Lymph # (Auto) [place] # (Auto) Eos # (Auto) Baso # (Auto) Absolute Nucleated RBC Nucleated RBC % PT 16.5 H INR 1.5 H VBG pH VBG pCO2 VBG pO2 VBG HCO3 VBG Total CO2 VBG O2 Saturation VBG Base Excess Sodium 123 L Potassium 3.0 L Chloride 83 L Carbon Dioxide 30 Anion Gap 10.0 BUN 10 Creatinine 0.5 Estimated GFR (MDRD) 123 Glucose 123 H Calcium 8.8 Phosphorus 1.1 L Magnesium 1.4 L Total Bilirubin 3.7 H AST 129 H ALT 47 Alkaline Phosphatase 274 H Ammonia 30.3 Total Protein 7.8 Albumin 2.8 L Globulin 5.0 H Albumin/Globulin Ratio 0.6 L Lipase 39 Ethyl Alcohol < 5.0 Serum Ketones NEGATIVE SARS-CoV-2 (PCR) - Rads (name of study) CT cervical spine is without fracture or osseous lesion Radiology: Prelim report reviewed CT of the head is notable for a large parafalcine subdural with also spreading along the left parietal occipital convexity and left tentorial area Radiology: EMP read contemporaneously PD MEDICAL DECISION MAKING - ED course ED course: 66-year-old woman with history of alcoholism was seen last week after a subacute subarachnoid hemorrhage with unchanged CT here in the department after consulting with [facility] neurosurgery. She went home and quit drinking but did fall Again on Thursday, 6 days ago. Now is much weaker. But has a nonfocal neuro exam. Slightly confused. Went over to CT on my "wet read" she has a large parafalcine subdural and [facility] was called and she was accepted by Dr. Kayli Velasquez at 5:25 PM. [place]ras were completed. Given that the fall was 6 days ago I think she is stable for ground transport to [facility]. Lab work demonstrates some significant electrolyte abnormalities including hyponatremia at 123, hypokalemia at 3.0, hypomagnesemia at 1.4. The potassium and magnesium were repleted IV. - Critical Care Time(min): 40 Time Includes: Direct patient care, Review records, Reassess patient, Document care, Coordinate care, Medical consult, Family consult for tx dec Data interpretation: Labs, Pulse ox Procedures included in critical care time: Peripheral IV Departure - Departure Disposition: 02 Transfer Acute Care Hosp Clinical Impression: Alcoholic liver disease, Hypomagnesemia Condition: Serious Discharge Date/Time: 09/06/21 19:00
--- NOTE | 2021-09-06 17:36 | CT Report ---
PROCEDURE: HEAD WO INDICATIONS: weak, recent small sdh TECHNIQUE: Noncontrast 4.5 mm thick angled axial sections acquired from the foramen magnum to the vertex. For r adiation dose reduction, the following was used: automated exposure control, adjustment of mA and/or kV according to patient size. COMPARISON: 08/30/2021.. FINDINGS: Image quality: Excellent. CSF spaces: Basal cisterns are patent. No extra-axial fluid collections. Ventricles are normal in size and shape. Brain: Acute subdural hematoma tracking along the left margin of the falx and the left alar of the t entorial. Small left parietal-occipital convexity subdural hematoma which measures 5 mm in maximum th ickness. The subdural hematoma maximum thickness on 9 mm. Subdural hematoma producing minimal mass ef fect on the adjacent left frontal, left parietal and left occipital brain parenchyma. No midline shif t. No intracranial masses. Matson-white matter interface is normal. Skull and face: Calvarium and visualized facial bones are intact, without suspicious lesions. There is a large left parietal scalp hematoma. There is a small right frontal scalp hematoma which is decre ased in size compared to the prior exam. Sinuses: Visualized sinuses and mastoids are clear. IMPRESSION: 1. Acute subdural hematoma. 2. Findings telephoned to Dr. Crowder on 09/06/2021 at 1733 hours. Reviewed by: Mackenzie Ríos MD, PhD on 09/06/2021 5:34 PM PDT Approved by: Mackenzie Ríos MD, PhD on 09/06/2021 5:34 PM PDT Station ID: [id number]
[2021-09-06 17:37] LABS: BASOPHILS % (AUTO) 0.5 %; EOSINOPHILS % (AUTO) 0.5 %; HCT - HEMATOCRIT 27.3 % (37.0-47.0); HGB - HEMOGLOBIN 9.8 g/dL (12.0-16.0); LYMPHOCYTES # (AUTO) 0.9 10^3/uL (1.5-3.5); MEAN CORPUSCULAR HEMOGLOBIN 37.7 pg (27.0-31.0); MEAN CORPUSCULAR HGB CONC 35.9 g/dL (32.0-36.0); MEAN PLATELET VOLUME 9.7 fL (7.9-10.8); MONOCYTES # (AUTO) 1.1 10^3/uL (0.0-1.0); MONOCYTES % (AUTO) 17.6 %; NEUTROPHILS # (AUTO) 4.2 10^3/uL (1.5-6.6); NEUTROPHILS % (AUTO) 66.4 %; NRBC ABSOLUTE COUNT (AUTO) 0.02 x10^3/uL; NUCLEATED RED BLOOD CELLS AUTO 0.3 /100WBC; PLT - PLATELET COUNT 143 10^3/uL (130-450); RED CELL DISTRIBUTION WIDTH 16.2 % (12.0-15.0); WHITE BLOOD COUNT 6.3 x10^3/uL (4.8-10.8)
[2021-09-06 17:39] LABS: VBG BASE EXCESS 7.6 mmol/L (-2 - +2); VBG HCO3 30.9 mmol/L (23-28); VBG PCO2 38.5 mmHg (41-51); VBG PH 7.523 (7.31-7.41); VBG PO2 23.4 mmHg (25-47); VBG TOTAL CO2 32.1 mmol/L (24-29)
[2021-09-06 17:40] LABS: VBG OXYGEN SATURATION 44.9 % (60-80)
[2021-09-06 18:10] VITALS: BP 136/79
--- NOTE | 2021-09-06 18:14 | CT Report ---
PROCEDURE: CERVICAL SPINE WO INDICATIONS: head inj TECHNIQUE: Noncontrast 3 mm thick sections acquired from the skull base to the T4 level. Sagittal and coronal r eformats were then constructed. For radiation dose reduction, the following was used: automated exp osure control, adjustment of mA and/or kV according to patient size. COMPARISON: None. FINDINGS: Image quality: Excellent. Bones: No fractures or dislocations. Visualized superior ribs are intact. Spine degenerative disc disease and facet arthropathy are noted. Soft tissues: Prevertebral soft tissues are normal in thickness. No paravertebral hematomas. No ap ical pneumothoraces. IMPRESSION: No fracture. No acute osseous lesion. If there is continued clinical concern for pathology, then MRI should be considered for further evaluation. Reviewed by: Mackenzie Ríos MD, PhD on 09/06/2021 6:13 PM PDT Approved by: Mackenzie Ríos MD, PhD on 09/06/2021 6:13 PM PDT Station ID: [id number]
[2021-09-06 18:22] LABS: INR 1.5 (0.8-1.2); KETONES, SERUM (ACETEST) NEGATIVE (NEGATIVE); PT - PROTHROMBIN TIME 16.5 secs (9.9-12.6)
[2021-09-06 18:31] LABS: ALBUMIN 2.8 g/dL (3.2-5.5); ALBUMIN/GLOBULIN RATIO 0.6 (1.0-2.2); ALKALINE PHOSPHATASE 274 IU/L (42-121); ALT ALANINE AMINOTRANSFERASE 47 IU/L (10-60); AST ASPARTATE AMINOTRANSFERASE 129 IU/L (10-42); BILIRUBIN,TOTAL 3.7 mg/dL (0.2-1.0); BUN - BLOOD UREA NITROGEN 10 mg/dL (6-20); CALCIUM 8.8 mg/dL (8.5-10.3); CARBON DIOXIDE - CO2 30 mmol/L (21-32); CHLORIDE 83 mmol/L (101-111); CREATININE 0.5 mg/dL (0.4-1.0); ETOH - ETHANOL < 5.0 mg/dL; GFR - MDRD 123 (>89); GLUCOSE 123 mg/dL (70-100); LIPASE 39 U/L (22-51); MAGNESIUM 1.4 mg/dL (1.7-2.8); PHOSPHORUS 1.1 mg/dL (2.5-4.6); SODIUM 123 mmol/L (135-145); TOTAL PROTEIN 7.8 g/dL (6.7-8.2)
[2021-09-06] MEDS ORDERED: MAGNESIUM SULFATE 2 GRAM 2 GM/50 ML BAG IV ONE (18:33)
[2021-09-06] MEDS ORDERED: POTASSIUM CHLOR 10 MEQ/100 ML 10 MEQ/100 ML BAG IV STA (18:33)
== END 2021-09-06 19:00 | disposition short-term general hospital (02) ==
LOC: EDUNIT# → ED 16:52
DX: K70.9 Alcoholic liver disease, unspecified (principal); E83.42 Hypomagnesemia; Z20.822 Contact with and (suspected) exposure to COVID-19
CPT/HCPCS: 36415; 70450; 72125; 80053; 82009; 82140; 82803; 83690; 83735; 84100; 85025; 85610; 87635; 96365; 96375; 99285; 99291; G0480; J3411; J7040; 80320

== ENCOUNTER 2021-09-06 19:03 | Outpatient (CLI) | payer MEDICARE | END 2021-09-06 19:04 | disposition short-term general hospital (02) | LOC: EMS 19:03 | PROVIDERS: ATTEND Emergency Medicine | DX: S06.5X9A Traumatic subdural hemorrhage with loss of consciousness of unspecified duration, initial encounter (principal); W18.30XA Fall on same level, unspecified, initial encounter | CPT/HCPCS: A0425; A0426 ==

== ENCOUNTER 2022-05-15 10:25 | Outpatient (CLI) | payer MEDICARE ==
--- NOTE | 2022-05-16 12:50 | Mammography Report ---
UNILATERAL RIGHT DIGITAL DIAGNOSTIC MAMMOGRAM 3D/2D: 05/15/2022 CLINICAL: 6 month follow-up biopsy on right breast. Comparison is made to exams dated: 10/10/2021 specimen, 10/10/2021 stereotactic biopsy - [facility], 10/02/2021 mammogram - [facility], 01/10/2021 mammogram, and 06/06/2020 mammogram - [facility]. The right breast is heterogeneously dense, which may obscure small masses (category c / 51-75% glandu lar tissue). There are benign grouped calcifications in the right breast at 1 o'clock middle depth. These are not significantly changed. There is a biopsy clip associated with the calcifications. No other significant masses or calcifications are seen in the breast. IMPRESSION: BENIGN There is no mammographic evidence of malignancy. Return to annual mammogram screening schedule is rec ommended. Based on the Tyrer Cuzick model (a risk assessment model) the patients lifetime risk is 3.6% and her 10 year risk is 1.9%. According to the ACR, ACS, and NCCN guidelines, an annual breast MRI exam luz marina g with mammogram is recommended if the patients lifetime risk is 20% or greater. This exam was interpreted at Station ID: [id number]. NOTE: For mammograms, a report in lay terms will be sent to the patient. Approximately 15% of breast malignancies will not be visualized mammographically. In the management of a palpable breast mass, a negative mammogram must not discourage biopsy of a clinically suspicious lesion. Electronically Signed By: Hardeep Espinal M.D., jr/abbe:05/15/2022 15:20:39 ACR BI-RADS Category 2: Benign Finding(s) 3342F PARENCHYMAL PATTERN: (D) - The breast(s) demonstrate(s) heterogeneously dense fibroglandular parcedric ortiz. BI-RADS CATEGORY: (2) - 2 RECOMMENDATION: (ANNUAL) - Recommend routine annual screening mammography. [id number] return to screening LATERALITY: (B)
== END 2022-05-15 10:26 | disposition home or self-care (01) ==
LOC: DI 10:25
PROVIDERS: ATTEND Physician Assistant Medical
DX: R92.8 Other abnormal and inconclusive findings on diagnostic imaging of breast (principal)

== ENCOUNTER 2023-06-15 14:25 | Outpatient (CLI) | payer MEDICARE ==
[2023-06-15 12:39] LABS: BASOPHILS % (AUTO) 0.5 %; EOSINOPHILS # (AUTO) 0.1 10^3/uL (0.0-0.7); EOSINOPHILS % (AUTO) 0.8 %; HCT - HEMATOCRIT 41.5 % (37.0-47.0); HGB - HEMOGLOBIN 13.2 g/dL (12.0-16.0); LYMPHOCYTES % (AUTO) 36.4 %; MEAN CORPUSCULAR HEMOGLOBIN 26.2 pg (27.0-31.0); MEAN CORPUSCULAR HGB CONC 31.8 g/dL (32.0-36.0); MEAN CORPUSCULAR VOLUME 82.5 fL (81.0-99.0); MONOCYTES # (AUTO) 0.5 10^3/uL (0.0-1.0); MONOCYTES % (AUTO) 6.3 %; NEUTROPHILS # (AUTO) 4.6 10^3/uL (1.5-6.6); NEUTROPHILS % (AUTO) 55.5 %; PLT - PLATELET COUNT 217 10^3/uL (130-450); RED BLOOD COUNT 5.03 10^6/uL (4.20-5.40); WHITE BLOOD COUNT 8.3 x10^3/uL (4.8-10.8)
[2023-06-15 13:14] LABS: ALBUMIN 4.3 g/dL (3.2-5.5); ALBUMIN/GLOBULIN RATIO 1.1 (1.0-2.2); BILIRUBIN,TOTAL 0.8 mg/dL (0.2-1.0); CALCIUM 9.9 mg/dL (8.5-10.3); CREATININE 0.7 mg/dL (0.6-1.3); POTASSIUM 4.3 mmol/L (3.5-4.5); TOTAL PROTEIN 8.3 g/dL (6.4-8.9)
--- NOTE | 2023-06-15 18:45 | CT Report ---
PROCEDURE: CT brain without contrast INDICATIONS: SUBDURAL HEMORRHAGE TECHNIQUE: Helical axial CT of the brain was obtained without contrast and reformatted in multiple p lanes. Radiation dose reduction was achieved using automated exposure control or adjustment of mA and /or kV according to patient size. COMPARISON: None FINDINGS: CSF spaces: Ventricles are appropriate in size and position. No hydrocephalus. Basal cisterns unre markable. Brain: No midline shift. No intracranial masses or hemorrhage. Matson-white matter interface is norm al. Skull and face: Calvarium and skull base are unremarkable without suspicious lesion. Sinuses: Visualized sinuses and mastoids are clear. IMPRESSION: Unremarkable CT of the brain Reviewed by: Bernardino Han MD on 06/15/2023 5:43 PM [place] Approved by: Bernardino Han MD on 06/15/2023 5:43 PM [place] Station ID: [id number]
== END 2023-06-15 14:26 | disposition home or self-care (01) ==
LOC: DI 14:25
PROVIDERS: ATTEND Physician Assistant Medical
DX: I62.00 Nontraumatic subdural hemorrhage, unspecified (principal); R73.9 Hyperglycemia, unspecified
CPT/HCPCS: 36415; 80053; 85025

== ENCOUNTER 2023-06-25 14:51 | Outpatient (CLI) | payer MEDICARE ==
--- NOTE | 2023-06-25 15:20 | Sleep Patient Instructions ---
Sleep Center Visit Summary - Patient Visit Information Reason for Visit: Annual Follow up - Patient Instructions Additional Instructions: You will be completing a sleep study, either an in-lab polysomnography (PSG) or home sleep study (HST). You will follow-up in the sleep care office after the sleep study is completed to hear the results and talk about therapy, if needed. You will be called by our office staff to schedule this appointment, but you may contact us with any questions. - Clinic Information Contact: [facility] [address] [place] [address] [email or web address] T: [phone]
--- NOTE | 2023-06-25 15:25 | SLEEP CARE CONSULTATION ---
Information from patient questionnaire entered by Qi Garcia. I have reviewed and concur with the information entered by Qi Garcia. This document represents the service I personally performed and the decisions made by me, Elham Strickland ARNP. History of Present Illness Service Date and Time: 06/25/2023 1451 Previous diagnosis: Moderate, Obstructive Sleep Apnea-Hypopnea Syndrome AHI: 27.8 (in 2019) Reason for follow up: annual (LAST SEEN 10/2020) Accompanied by: Spouse (Kulwant) Equipment type: CPAP (RESMED NEED MACHINE) Equipment obtained from: Other ([facility]) Prior sleep studies: Yes [facility] and [facility] Type of Sleep Study: Home sleep study HPI additional information: JOSSELIN AGUSTIN was diagnosed to have moderate, AHI 27.8, obstructive sleep apnea-hypopnea syndrome and returned today for CPAP therapy annual follow-up. She has not been using the CPAP in last two years. She is working on having gastric sleeve surgery. Sleep Study - Results Type of Sleep Study: Home sleep study Prior sleep studies: Yes Year and Where: 2019 - [facility] Sleep CPAP Compliance Data Compliance data discussion: She has not been using her CPAP because she did not feel it was doing anything for her sleep. Subjective Initial [place] Sleepiness Scale score: 3 (in 2019) Current [place] Sleepiness Scale score: 1 (06/25/23) Allergies and Home Medications Known drug allergies: No Drug allergies reviewed: Yes Home medication list reviewed: Yes (Cymbalta) Allergy and home medication list: Allergies No Known Drug Allergies Allergy Review of Systems Review of systems same as previous: Yes (NO CHANGE) Physical Exam Vital signs obtained and entered by: QI Orosco MA Blood Pressure: 146/93 (RIGHT ARM) Cuff size: regular Heart Rate: 102 O2 Saturation: 99 Height: 5 ft 6 in Weight: 217 lb 3.2 oz Body Mass Index: 35.0 BMI Classification: Obese Impression and Plan 1. Obstructive Sleep Apnea-Hypopnea Syndrome, moderate. She was last seen in our office in October 2020. She used her CPAP for a while but it never helped her to sleep better. Her doctor increased her Cymbalta and she started sleeping much better. She could go to sleep easily and stays asleep at night. Because she was sleeping so much better she decided she did not need the CPAP because it had never worked for her and she stopped using it altogether. She returns because she is going to have bariatric surgery, gastric sleeve. They have sent her here for evaluation of sleep apnea. I explained to her that we will need to set up for a another sleep study as this is standard procedure when looking at bariatric surgery. She voiced understanding and agreement with plan but would like to get it done as soon as possible. Patient's apnea severity and rationale for treatment to reduce apnea, improve sleep quality and reduce cardiovascular and cerebrovascular events was reviewed. I also reviewed the benefit of consistent device use of CPAP for fibromyalgia. 2. Obesity, unspecified. Currently patients BMI is 35. Obesity increases the risk of apnea, CPAP pressure requirements and overall health risks especially cardiovascular and diabetes. Thus patient is advised to lose weight. * Schedule polysomnography +- manual CPAP titration study and return in 1-2 weeks after the study to discuss result and initiate therapy. * Avoid long distance driving or driving when feeling sleepy. * Avoid alcohol, sedative and muscle relaxant around bedtime. * Attempt to lose weight. * Review instructions provided by trained office staff on how to prepare for the sleep study. * Return for follow-up after sleep study completed. Counseling Topics: Weight loss health impact Visit Type: In Office Time Spent with Patient (minutes): 22 Provider Statement: I spent 100% of the Face to Face Visit with the patient with greater than 50% spent counseling the patient and coordination of care.
[2023-06-25 15:34] VITALS: BP 146/93; O2SAT 99
== END 2023-06-25 14:52 | disposition home or self-care (01) ==
LOC: SC 14:51
PROVIDERS: ATTEND Nurse Practitioner Family
DX: G47.33 Obstructive sleep apnea (adult) (pediatric) (principal); E66.9 Obesity, unspecified; Z68.35 Body mass index [BMI] 35.0-35.9, adult
CPT/HCPCS: 99213; G0463; 99212

== ENCOUNTER 2023-06-30 14:32 | Outpatient (CLI) | payer MEDICARE ==
--- NOTE | 2023-07-03 09:45 | Mammography Report ---
BILATERAL DIGITAL SCREENING MAMMOGRAM 3D/2D: 06/30/2023 CLINICAL: Routine screening. Comparison is made to exams dated: 05/15/2022 mammogram - [facility], 10/10/2021 ster eotactic biopsy - [facility], 10/02/2021 mammogram - [facility], 01/10/2021 mammogram, and 06/06/2020 mammogram - [facility]. Both breasts are heterogeneously dense, which may obscure small masses (category c / 51-75% glandular tissue). There are benign vascular calcifications in both breasts. There also are biopsy clips in the right b reast. No significant masses, calcifications, or other findings are seen in either breast. There has been no significant interval change. IMPRESSION: BENIGN There is no mammographic evidence of malignancy. A 1 year screening mammogram is recommended. Based on the Tyrer Cuzick model (a risk assessment model) the patient's lifetime risk is 3.4% and her 10 year risk is 1.9%. According to the ACR, ACS, and NCCN guidelines, an annual breast MRI exam luz marina g with mammogram is recommended if the patient's lifetime risk is 20% or greater. This exam was interpreted at Station ID: [id number]. NOTE: For mammograms, a report in lay terms will be sent to the patient. Approximately 15% of breast malignancies will not be visualized mammographically. In the management of a palpable breast mass, a negative mammogram must not discourage biopsy of a clinically suspicious lesion. Electronically Signed By: Eliezer bassett/abbe:07/02/2023 16:30:50 letter sent: No_Letter ACR BI-RADS Category 2: Benign Finding(s) 3342F PARENCHYMAL PATTERN: (D) - The breast(s) demonstrate(s) heterogeneously dense fibroglandular parcedric ortiz. BI-RADS CATEGORY: (2) - 2 Mammogram [id number] 1 year screening LATERALITY: (B)
== END 2023-06-30 14:33 | disposition home or self-care (01) ==
LOC: DI 14:32
DX: Z12.31 Encounter for screening mammogram for malignant neoplasm of breast (principal); R92.333 Mammographic heterogeneous density, bilateral breasts; R92.1 Mammographic calcification found on diagnostic imaging of breast

== ENCOUNTER 2023-07-21 12:30 | Outpatient (CLI) | payer MEDICARE | END 2023-07-21 12:31 | disposition home or self-care (01) | LOC: SC 12:30 | PROVIDERS: ATTEND Nurse Practitioner Family | DX: G47.33 Obstructive sleep apnea (adult) (pediatric) (principal); R09.02 Hypoxemia; R00.0 Tachycardia, unspecified | CPT/HCPCS: G0399 ×2; 95806 ==

== ENCOUNTER 2023-07-31 08:00 | Outpatient (CLI) | payer MEDICARE | END 2023-07-31 23:59 | disposition home or self-care (01) | LOC: LAB.WC 08:00 | PROVIDERS: ATTEND Nurse Practitioner | DX: L30.9 Dermatitis, unspecified (principal) | CPT/HCPCS: 87070; 87181; 87205 ==

== ENCOUNTER 2023-08-07 13:29 | Outpatient (CLI) | payer MEDICARE ==
--- NOTE | 2023-08-07 13:56 | Sleep Patient Instructions ---
Sleep Center Visit Summary - Patient Visit Information Reason for Visit: Sleep study follow-up - Patient Instructions Additional Instructions: You were here for follow up of the Home sleep study. You will be continued on CPAP therapy with pressure at 8-12 cmH2O. Please let us know if the pressure change is uncomfortable and we can make further adjustments of the pressure. You should follow up with sleep care in 1-2 months. You may contact us sooner for any questions or concerns. - Clinic Information Contact: [facility] [address] [place] [address] [email or web address] T: [phone]
--- NOTE | 2023-08-07 14:03 | SLEEP CARE CONSULTATION ---
Information from patient questionnaire entered by Qi Garcia. I have reviewed and concur with the information entered by Qi Garcia. This document represents the service I personally performed and the decisions made by me, Elham Strickland ARNP. History of Present Illness Service Date and Time: 08/07/2023 1329 Initial [place] Sleepiness Scale score: 3 (in 2019) Current [place] Sleepiness Scale score: 9 (08/07/23) Additional HPI information: JOSSELIN AGUSTIN returns for follow up and results of the recently performed home sleep study. The sleep study showed severe obstructive sleep apnea with an average AHI of 46.1 and christen oxygen saturation of 50%. She was noted to have an elevated heart rate to 123 bpm on night of sleep study. I explained the pathophysiology behind obstructive sleep apnea. We then spent quite a bit of time discussing different treatment options. For mild obstructive sleep apnea, surgery and oral appliance are alternatives to nasal CPAP therapy but in moderate or severe cases, nasal CPAP is the most effective and reliable treatment. I reviewed the impact of weight changes on sleep apnea and strongly recommended losing weight. After some discussion, I advised patient that she really needs to re-starte her nasal CPAP therapy. She agreed to re-start using her CPAP. Nasal autoCPAP is set at 8-12 cmH20. A manual titration study will be ordered if unable to find optimal pressure with office adjustments. Patient does not drink alcohol. Patient was cautioned about risks of drowsy driving until sleepiness symptoms resolve. Patient denies drowsy driving. She says she does not really drive. Sleep Study - Results Type of Sleep Study: Home sleep study (COMPLETED 07/21/23) Prior sleep studies: Yes Year and Where: 2019 - [facility] Sleep Polysomnography/Home Sleep Study results: Physician Impression: The quality of the study is good. The length of the study is adequate (> 240 minutes). Please also see the tabulated and graphic data. 1. Obstructive Sleep Apnea-Hypopnea (ICD-10 G47.33), severe, with an AHI of 46.1/hr and christen SaO2 of 50%. During the study, the patient had 173 apneas (173 obstructive, 0 central, 0 mixed) and 71 hypopneas. The longest episode lasted 85.5 seconds. The patient slept almost exclusively in supine position (supine AHI was 45.9 and non-supine, 400.00). 2. Hypoxemia (ICD-10 R09.02), severe, with the lowest oxygen saturation of 50 % and 59.2 minutes with SaO2 under 90%. Baseline oxygen saturation was normal (Average oxygen saturation was 91%). 3. Tachycardia, with maximum recorded heart rate of 123 beats per minute. Allergies and Home Medications Known drug allergies: No Drug allergies reviewed: Yes Home medication list reviewed: Yes (as listed) Allergy and home medication list: Allergies No Known Drug Allergies Allergy (Verified 08/05/23 11:17) Home Medications Medication Instructions Recorded Confirmed Last Taken Type DULoxetine [Cymbalta] 20 mg PO DAILY 04/30/21 08/07/23 Unknown History Atorvastatin [Lipitor] See Rx Instructions .ROUTE .COMPLEX 06/25/23 08/07/23 Unknown History Multivit-Min/Iron/Folic/Lutein See Rx Instructions .ROUTE .COMPLEX 06/25/23 08/07/23 Unknown History [Multivitamin Women 50 Plus Tab] Multivitamin with Minerals [Hair, See Rx Instructions .ROUTE .COMPLEX 06/25/23 08/07/23 Unknown History Skin and Nails] Review of Systems Review of systems same as previous: Yes (NO CHANGE) Physical Exam Vital signs obtained and entered by: QI Orosco MA Blood Pressure: 142/84 (LEFT ARM) Cuff size: regular Heart Rate: 90 O2 Saturation: 98 Height: 5 ft 6 in Weight: 220 lb 3.2 oz Body Mass Index: 35.5 BMI Classification: Obese Impression and Plan 1. Obstructive Sleep Apnea-Hypopnea Syndrome, severe, with lowest oxygen saturation of 50%. After explaining to patient that she really needs to be started using her CPAP because of her severe hypoxemia, tachycardia and severe sleep apnea, patient agreed that she we will restart using her CPAP. She wants to wait until after her surgery to start using it. I encouraged her to start now so that she is more used to using it and because she will need it. To help keep her oxygen levels up at night. She voiced understanding. As mentioned above, the patient will be re-started on nasal autoCPAP therapy with pressure set at 8-12 cmH2O. Compliance guidelines also reviewed. She will make an appoint ment in 1-2 months to see how she is doing. 2. Hypoxemia, severe, with a christen oxygen saturation of 50% and 59.2 minutes spent under 90%. The baseline oxygen saturation was normal with an average ox ygen saturation of 91%. 3. Tachycardia. Elevated heart rate of 123 bpm noted during sleep study. Patient advised to follow-up with primary provider for further evaluation of elevated heart rate. She voiced understanding. 4. Obesity, unspecified. Currently patients BMI is 35.5. She is going to have bariatric surgery, gastric sleeve, in a couple weeks. Obesity increases the risk of apnea, CPAP pressure requirements and overall health risks especially cardiovascular and diabetes. Thus patient is advised to continue to try to lose weight. * Continue auto CPAP pressure at 8-12 cmH2O * Notify me if snoring with mask or feeling that the pressure is too much or too little * Attempt to lose weight * Call this office if any problems using CPAP * Return for follow up in 1-2 months, or sooner if concerns arise Counseling Topics: Weight loss health impact Follow up with Sleep Care in: 1-2 months Visit Type: In Office Time Spent with Patient (minutes): 21 Provider Statement: I spent 100% of the Face to Face Visit with the patient with greater than 50% spent counseling the patient and coordination of care.
[2023-08-07 14:09] VITALS: BP 142/84; O2SAT 98
== END 2023-08-07 13:30 | disposition home or self-care (01) ==
LOC: SC 13:29
PROVIDERS: ATTEND Nurse Practitioner Family
DX: G47.33 Obstructive sleep apnea (adult) (pediatric) (principal); R09.02 Hypoxemia; R00.0 Tachycardia, unspecified; E66.9 Obesity, unspecified; Z68.35 Body mass index [BMI] 35.0-35.9, adult
CPT/HCPCS: 99213; G0463; 99212

== ENCOUNTER 2023-08-20 12:10 | Outpatient (CLI) | payer MEDICARE ==
[2023-08-20 12:24] LABS: BASOPHILS % (AUTO) 0.6 %; EOSINOPHILS # (AUTO) 0.1 10^3/uL (0.0-0.7); EOSINOPHILS % (AUTO) 0.8 %; HCT - HEMATOCRIT 38.4 % (37.0-47.0); HGB - HEMOGLOBIN 12.5 g/dL (12.0-16.0); LYMPHOCYTES # (AUTO) 2.3 10^3/uL (1.5-3.5); LYMPHOCYTES % (AUTO) 35.3 %; MEAN CORPUSCULAR HEMOGLOBIN 26.8 pg (27.0-31.0); MEAN CORPUSCULAR HGB CONC 32.6 g/dL (32.0-36.0); MEAN CORPUSCULAR VOLUME 82.2 fL (81.0-99.0); MONOCYTES # (AUTO) 0.4 10^3/uL (0.0-1.0); MONOCYTES % (AUTO) 5.8 %; NEUTROPHILS # (AUTO) 3.8 10^3/uL (1.5-6.6); NEUTROPHILS % (AUTO) 57.3 %; PLT - PLATELET COUNT 184 10^3/uL (130-450); RED BLOOD COUNT 4.67 10^6/uL (4.20-5.40); RED CELL DISTRIBUTION WIDTH 14.6 % (12.0-15.0); WHITE BLOOD COUNT 6.6 x10^3/uL (4.8-10.8)
[2023-08-20 12:48] LABS: ALBUMIN 4.4 g/dL (3.2-5.5); ALBUMIN/GLOBULIN RATIO 1.2 (1.0-2.2); BILIRUBIN,TOTAL 0.8 mg/dL (0.2-1.0); CALCIUM 9.6 mg/dL (8.5-10.3); CREATININE 0.6 mg/dL (0.6-1.3); POTASSIUM 4.2 mmol/L (3.5-4.5); TOTAL PROTEIN 8.2 g/dL (6.4-8.9)
[2023-08-20 13:31] LABS: ESTIMATED AVERAGE GLUCOSE 123 mg/dL (70-100); HEMOGLOBIN A1c% 5.9 % (4.27-6.07)
== END 2023-08-20 12:11 | disposition home or self-care (01) ==
LOC: LAB 12:10
PROVIDERS: ATTEND Surgery
DX: Z01.818 Encounter for other preprocedural examination (principal)
CPT/HCPCS: 36415; 80053; 83036; 83540; 84466; 85025

== ENCOUNTER 2023-10-09 08:00 | Outpatient (CLI) | payer MEDICARE | END 2023-10-09 23:59 | disposition home or self-care (01) | LOC: LAB.WCP 08:00 | PROVIDERS: ATTEND Emergency Medicine | DX: L08.0 Pyoderma (principal) | CPT/HCPCS: 87070; 87181; 87205 ==

== ENCOUNTER 2023-11-11 14:47 | Outpatient (CLI) | payer MEDICARE ==
[2023-11-11 15:25] LABS: ALBUMIN 4.3 g/dL (3.2-5.5); ALBUMIN/GLOBULIN RATIO 1.4 (1.0-2.2); ALKALINE PHOSPHATASE 123 IU/L (42-121); ALT ALANINE AMINOTRANSFERASE 23 IU/L (10-60); AST ASPARTATE AMINOTRANSFERASE 25 IU/L (10-42); BILIRUBIN,TOTAL 0.8 mg/dL (0.2-1.0); BUN - BLOOD UREA NITROGEN 15 mg/dL (6-20); CALCIUM 9.7 mg/dL (8.5-10.3); CARBON DIOXIDE - CO2 28 mmol/L (21-32); CHLORIDE 100 mmol/L (101-111); CHOL/HDL RATIO 3.6 (<4.4); CHOLESTEROL 135 mg/dL; CREATININE 0.8 mg/dL (0.6-1.3); GFR - MDRD 71 (>89); GLUCOSE 89 mg/dL (74-104); HDL CHOLESTEROL 38 mg/dL; LDL CHOLESTEROL,CALCULATED 68 mg/dL; LDL/HDL RATIO 1.8 (<4.4); POTASSIUM 4.1 mmol/L (3.5-4.5); SODIUM 136 mmol/L (135-145); TOTAL PROTEIN 7.3 g/dL (6.4-8.9); TRIGLYCERIDES 147 mg/dL; VLDL CHOLESTEROL 29 mg/dL
[2023-11-11 22:51] LABS: ESTIMATED AVERAGE GLUCOSE 100 mg/dL (70-100); HEMOGLOBIN A1c% 5.1 % (4.27-6.07)
== END 2023-11-11 14:48 | disposition home or self-care (01) ==
LOC: LAB 14:47
PROVIDERS: ATTEND Physician Assistant Medical
DX: E78.5 Hyperlipidemia, unspecified (principal); R73.9 Hyperglycemia, unspecified
CPT/HCPCS: 36415; 80053; 80061; 83036; 83721